=== PATIENT | female | born 1945 | race Caucasian/White ===

== ENCOUNTER → 2016-09-25 | Outpatient (CLI) | payer MEDICARE, BC ==
--- NOTE | 2016-09-25 13:09 | CT ---
EXAMINATION TYPE: CT brain wo con DATE OF EXAM: 09/25/2016 1:02 PM COMPARISON: 03/20/2010 [facility] Diana Villasenor INDICATION: Fall hydrocephalus DLP: 1153.70 mGycm, Automated exposure control for dose reduction was used. CONTRAST: None CT of the brain is performed utilizing 3 mm thick sections through the posterior fossa and 3 mm thick sections through the remaining calvarium. Study is performed within 24 hours of arrival to the hosp ital. No abnormal hyperdensity is present to suggest an acute intracranial hemorrhage. No mass lesion is evident. No acute infarcts are evident. Ventricles and sulci are markedly dilated for the patient age. This appearance however is stable fro 2009. There is mucosal thickening within the left maxillary sinus. There is opacification of the left sphen oid sinus with an air-fluid level present. Mucosal thickening is through ethmoid air cells. Right fro ntal sinus has mucosal thickening. Hyperostosis frontalis internus is present. IMPRESSIONS: 1. Stable hydrocephalus 2. Paranasal sinus disease
--- NOTE | 2016-09-25 13:11 | CT ---
EXAMINATION TYPE: CT hip RT wo con DATE OF EXAM: 09/25/2016 1:03 PM COMPARISON: NONE HISTORY: Fall, pain CT DLP: 520.84 mGycm Automated exposure control for dose reduction was used. FINDINGS: Femoral head articulates with the acetabulum. No acute fractures evident. Joint space is narrow alba tible with some degenerative change. Reconstructed images in the coronal and sagittal plane are reviewed on the computer. IMPRESSION: 1. NO ACUTE OSSEOUS ABNORMALITY RIGHT HIP
--- NOTE | 2016-09-25 13:29 | CT ---
EXAMINATION TYPE: CT chest wo con DATE OF EXAM: 09/25/2016 1:03 PM COMPARISON: 09/05/2010 HISTORY: Hydrocephalus fall CT DLP: 660.69 mGycm, Automated exposure control for dose reduction was used. CONTRAST: None TECHNIQUE: Axial images were obtained at 5 mm thick sections. Reconstructed images are reviewed on t he computer in the coronal plane. FINDINGS: Portion of the thyroid visualized is normal. There are patchy areas of pneumonitis present bilaterally. A new area appears to be in the left upper lobe. Series 18 image 11. An area within the upper portion right middle lobe has enlarged. Series 18 image 17. There is some enlargement of some densities within the superior segment left lower lobe. T his measures 0.4 cm which may be minimally larger than the prior. A 0.8 cm microlobular bordered dens ity in the superior segment right lower lobe has enlarged from 6 mm. Series 18 image 22 additional 0. 8 cm densities are within the left lower lobe. Series 18 images 22, 24. Stable densities or cavitatio n with air-fluid levels in the azygos esophageal recess are again evident. These may have enlarged ov er the interval with the largest measuring 1.2 x 1.3 cm. No enlarged mediastinal or hilar adenopathy is evident. The ascending aorta diameter at the level o f the main pulmonary artery is 3.8 cm. The main pulmonary artery diameter at the bifurcation is 2.8 cm. Coronary artery calcification is present. Limited CT sections are obtained through the upper abdomen. Calcification is within the right adrenal gland which can be related to prior hemorrhage. IMPRESSIONS: 1. Scattered shotty and some enlarged lymph nodes within the mediastinum. 2. Patchy scattered areas of pneumonitis within the bilateral lung texieira. 3. New area of pneumonitis is within the left upper lobe. Some of these old areas of pneumonitis may have minimally enlarged by a millimeter or two. Consider PET/CT to evaluate for possible neoplasm.
== END ==
LOC: RADCTMAIN 12:13
PROVIDERS: ATTEND Family Medicine
DX: G91.9 Hydrocephalus, unspecified (principal); J32.8 Other chronic sinusitis; S09.90XA Unspecified injury of head, initial encounter; W19.XXXA Unspecified fall, initial encounter; D86.0 Sarcoidosis of lung; M89.8X5 Other specified disorders of bone, thigh; R59.1 Generalized enlarged lymph nodes; J18.9 Pneumonia, unspecified organism
CPT/HCPCS: 70450; 71250

== ENCOUNTER → 2016-12-09 | Outpatient (CLI) | payer MEDICARE, BC ==
--- NOTE | 2016-12-09 09:31 | MR ---
MRI CERVICAL SPINE: CLINICAL HISTORY: Cervical myelopathy with difficulty walking TECHNIQUE: Multiplanar, multisequence imaging of the cervical spine is performed without IV contrast. COMPARISON: CT brain September 25, 2016 FINDINGS: Sagittal images of the cervical spine show the craniocervical junction to appear within nor mal limits. There is redemonstration of extra-axial CSF prominence in the posterior fossa with partia l visualization of severe hydrocephalus. This is unchanged back from 2011 studies. 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 The cervical and upper thoracic spinal cord is normal i n course, caliber, and signal. Vertebral alignment is anatomic. The vertebral body and intravertebr al disk heights are normal. Small posterior disc herniations are seen C4-C5 through C6-C7 levels on s agittal images effacing anterior thecal sac. There is generalized diminished T1 and T2 signal involvi ng the C5 vertebra noted. Axial images show the C2-C3 and C3-C4 vertebra to appear within normal limits. Axial images at C4-C5 level shows central disc protrusion effacing anterior thecal sac on axial image 33, bilateral neural foramina are patent. Axial images at C5-C6 level shows central disc protrusion effacing anterior thecal sac up to ventral surface of spinal cord on axial image 25, bilateral neural foramina are patent. Axial images at C6-C7 level show broad-based left paracentral disc protrusion effacing anterior theca l sac up to ventral surface of spinal cord with mild left-sided neural foraminal narrowing present. R ight-sided neural foramen is patent. Axial images at C7-T1 level are felt within normal limits. IMPRESSION: Some multilevel degenerative changes in the mid to lower cervical spine from C4 -C5 throu gh C6-C7 levels are seen as detailed above. Focal diffuse diminished signal involving C5 vertebra cou ld reflect myelofibrosis or mastocytosis among the possible etiologies. Clinical correlation advised.
== END | disposition home or self-care (01) ==
LOC: RADMRIMAIN 07:57
PROVIDERS: ATTEND Psychiatry & Neurology Neurology
DX: M47.12 Other spondylosis with myelopathy, cervical region (principal)
CPT/HCPCS: 72141

== ENCOUNTER → 2017-07-28 | Outpatient (CLI) | payer MEDICARE, BC ==
--- NOTE | 2017-07-28 23:23 | MR ---
EXAMINATION TYPE: MR brain wo con DATE OF EXAM: 07/28/2017 COMPARISON: Prior MRI brain March 21, 2010. Recent CT brain September 25, 2016. HISTORY: Hydrocephalus, worsening and worsening balance per order. TECHNIQUE: Multiplanar, multisequence imaging of the brain and brainstem is performed without IV cont rast. FINDINGS: Diffusion weighted images demonstrate no evidence of a recent infarct or other diffusion abnormality. There is no worrisome extra-axial fluid collection. There is marked ventricular dilatation or hydroce phalus redemonstrated not significantly changed from prior MRI. Enlarged toño cisterna magna is again seen. There are increased foci of T2 hyperintensity seen throughout the white matter bilaterally not ed. Midline structures redemonstrate thinning of genu and anterior body of corpus callosum and nonvisuali zation or absence of distal body and splenium. The craniocervical junction appears within normal lua its. Normal vascular flow voids are present. There is persistent mucosal thickening involving ethmoid , inferior maxillary, and bilateral frontal sinuses slightly improved from prior. Fluid is noted depe ndently in left sphenoid sinus stable. The globes are intact bilaterally. IMPRESSION: Stable severe hydrocephalus and toño-cisterna magna not significantly changed from prior MRI. Fairly moderate nonspecific white matter changes presumed on the basis of chronic small vessel i schemic change progressed from prior MRI. Paranasal sinus disease redemonstrated.
== END | disposition home or self-care (01) ==
LOC: RADMRIMAIN 13:15
PROVIDERS: ATTEND Psychiatry & Neurology Neurology
DX: G91.9 Hydrocephalus, unspecified (principal); R90.82 White matter disease, unspecified
CPT/HCPCS: 70551

== ENCOUNTER 2022-05-27 18:16 | Emergency (ER) | payer OTHER ==
[2022-05-27 18:38] VITALS: TEMP 97.7
--- NOTE | 2022-05-27 18:57 | ED ---
Altered Mental Status HPI - General Chief Complaint: Altered Mental Status Stated Complaint: AMS Time Seen by Provider: 05/27/22 18:22 Source: EMS Mode of arrival: EMS Limitations: altered mental status - History of Present Illness Initial Comments: This patient is a 76-year-old woman sent from the [facility] to have evaluation for altered mental status. The patient is very somnolent and not able to give much history. She does answer direct questions with short answers. Per the patient's who is at the bedside, [facility] because they were concerned that she was very somnolent. She reportedly had been given new medication to help her sleep. When I asked the patient, she is not having pain or dyspnea. She denies complaints. MD Complaint: altered mental status, decreased responsiveness -: hour(s) Severity: moderate Context: change in medication Associated Symptoms: denies other symptoms - Related Data Home Medications Medication Instructions Recorded Confirmed Montelukast [Singulair] 10 mg PO DAILY 12/11/14 05/22/16 Meloxicam [Mobic] 7.5 mg PO DAILY 05/22/16 05/22/16 Diclofenac Sodium [Voltaren Gel] 2 gram TOPICAL QID 05/28/16 05/28/16 Furosemide [Lasix] 1 tab PO DAILY 05/28/16 05/28/16 Ibuprofen [Advil] 100 mg PO DAILY PRN 05/28/16 05/28/16 Ipratropium [place] 0.06%Nasal 1 spray NASAL DAILY 05/28/16 05/28/16 [Atrovent Nasal 0.06%] [place] 1 drop BID 05/28/16 traMADol HCl [Ultram] 1 tab PO Q4H 05/28/16 05/28/16 Albuterol Nebulized [Ventolin 2.5 mg INHALATION RT-TID 04/29/22 04/29/22 Nebulized] Albuterol Sulfate [Ventolin HFA] 2 puff INHALATION RT-QID PRN 04/29/22 04/29/22 Ammonium Lactate Lotion 1 applic TOPICAL DAILY 04/29/22 04/29/22 [Lac-Hydrin 12% Lotion] Ascorbic Acid [Vitamin C] 500 mg PO DAILY 04/29/22 04/29/22 Cholecalciferol [Vitamin D3 (25 50 mcg PO DAILY 04/29/22 04/29/22 Mcg = 1000 Iu)] Cholestyramine (with Sugar) 4 gm PO DAILY 04/29/22 04/29/22 [Cholestyramine Powder] Donepezil HCl [Aricept] 10 mg PO DAILY 04/29/22 04/29/22 Ibuprofen [Motrin Ib] 400 mg PO Q6H PRN 04/29/22 04/29/22 Lactobacillus Rhamnosus GG 1 cap PO DAILY 04/29/22 04/29/22 [Culturelle] Loratadine [Claritin] 10 mg PO DAILY 04/29/22 04/29/22 Metoprolol Succinate [Metoprolol 25 mg PO DAILY 04/29/22 04/29/22 Succinate ER] Nystatin [Nystop] 1 applic TOPICAL BID 04/29/22 04/29/22 Omeprazole 20 mg PO DAILY 04/29/22 04/29/22 Zinc 50 mg PO DAILY 04/29/22 04/29/22 estradioL [Estring] 1 vag ring VAGINAL Q90D 04/29/22 04/29/22 Previous Rx's Medication Instructions Recorded Diclofenac Sodium Gel [Voltaren 2 gm TOPICAL QID #1 tube 05/28/16 Gel] traMADol HCl [Ultram] 50 mg PO Q4H PRN #150 tab 05/28/16 Cephalexin [Keflex] 250 mg PO Q6HR 5 Days #20 cap 05/03/22 QUEtiapine [SEROquel] 25 mg PO HS 30 Days #30 tab 05/03/22 levETIRAcetam [Keppra] 500 mg PO Q12HR 30 Days #60 tab 05/03/22 Cephalexin [Keflex] 500 mg PO Q6HR #12 cap 05/27/22 Allergies Allergy/AdvReac Type Severity Reaction Status Date / Time aspirin AdvReac Unknown Verified 05/09/22 09:04 Review of Systems ROS Statement: Those systems with pertinent positive or pertinent negative responses have been documented in the HPI. ROS Other: All systems not noted in ROS Statement are negative. Limitations: ROS unobtainable due to patients medical condition Constitutional: Denies: fever Respiratory: Denies: cough, dyspnea Cardiovascular: Denies: chest pain Gastrointestinal: Denies: abdominal pain Musculoskeletal: Denies: back pain Neurological: Denies: headache Past Medical History Past Medical History: Dementia, Memory Impairment, Osteoarthritis (OA) Additional Past Medical History / Comment(s): hydrocehpalis History of Any Multi-Drug Resistant Organisms: None Reported Past Surgical History: No Surgical Hx Reported Additional Past Surgical History / Comment(s): deviated septum, cervical biopsy, epidural injections Past Anesthesia/Blood Transfusion Reactions: No Reported Reaction Past Psychological History: No Psychological Hx Reported Smoking Status: Never smoker Past Alcohol Use History: None Reported Past Drug Use History: None Reported - Past Family History Mother Family Medical History: No Reported History General Exam Limitations: no limitations General appearance: obtunded, other (This patient is appearing stated age. She is somnolent but arousable.) Head exam: Present: atraumatic, normocephalic Eye exam: Present: normal appearance, EOMI. Absent: scleral icterus, conjunctival injection ENT exam: Present: mucous membranes dry Neck exam: Present: normal inspection, full ROM. Absent: tenderness, meningismus Respiratory exam: Present: wheezes (Trace wheeze). Absent: respiratory distress, rales, rhonchi, stridor, accessory muscle use Cardiovascular Exam: Present: regular rate, normal rhythm, normal heart sounds. Absent: systolic murmur, diastolic murmur, rubs, gallop GI/Abdominal exam: Present: soft. Absent: distended, tenderness, guarding, rebound, rigid, mass Extremities exam: Present: normal inspection, normal capillary refill. Absent: pedal edema, calf tenderness Neurological exam: Present: altered, other (Patient is too somnolent to comply with multistep instructions, does move all 4 extremities without apparent deficit. Answers simple yes and no questions.). Absent: motor sensory deficit Skin exam: Present: warm, dry, intact, normal color. Absent: rash Course Vital Signs 05/27/22 05/27/22 18:29 18:38 Temperature 97.7 F Pulse Rate 73 Respiratory 24 Rate Blood Pressure 109/58 O2 Sat by Pulse 96 Oximetry Medical Decision Making - Lab Data Result diagrams: 05/27/22 19:02 05/27/22 19:02 Lab Results 05/27/22 05/27/22 05/27/22 Range/Units 19:02 19:02 19:02 WBC 9.7 (3.8-10.6) k/uL RBC 4.87 (3.80-5.40) m/uL Hgb 14.9 (11.4-16.0) gm/dL Hct 44.0 (34.0-46.0) % MCV 90.4 (80.0-100.0) fL MCH 30.6 (25.0-35.0) pg MCHC 33.9 (31.0-37.0) g/dL RDW 12.8 (11.5-15.5) % Plt Count 178 (150-450) k/uL MPV 9.2 Neutrophils % 80 % Lymphocytes % 9 % Monocytes % 7 % Eosinophils % 3 % Basophils % 1 % Neutrophils # 7.8 H (1.3-7.7) k/uL Lymphocytes # 0.9 L (1.0-4.8) k/uL Monocytes # 0.6 (0-1.0) k/uL Eosinophils # 0.3 (0-0.7) k/uL Basophils # 0.1 (0-0.2) k/uL PT 11.8 (9.0-12.0) sec INR 1.1 (<1.2) APTT 23.8 (22.0-30.0) sec Sodium 134 L (137-145) mmol/L Potassium 4.1 (3.5-5.1) mmol/L Chloride 102 (98-107) mmol/L Carbon Dioxide 20 L (22-30) mmol/L Anion Gap 12 mmol/L BUN 21 H (7-17) mg/dL Creatinine 0.95 (0.52-1.04) mg/dL Est GFR (CKD-EPI)AfAm 67 (>60 ml/min/1.73 sqM) Est GFR (CKD-EPI)NonAf 58 (>60 ml/min/1.73 sqM) Glucose 145 H (74-99) mg/dL Calcium 9.3 (8.4-10.2) mg/dL Total Bilirubin 0.7 (0.2-1.3) mg/dL AST 25 (14-36) U/L ALT 18 (4-34) U/L Alkaline Phosphatase 90 (38-126) U/L Troponin I (0.000-0.034) ng/mL Total Protein 7.1 (6.3-8.2) g/dL Albumin 4.1 (3.5-5.0) g/dL Urine Color Urine Appearance (Clear) Urine pH (5.0-8.0) Ur Specific Mcdade (1.001-1.035) Urine Protein (Negative) Urine Glucose (UA) (Negative) Urine Ketones (Negative) Urine Blood (Negative) Urine Nitrite (Negative) Urine Bilirubin (Negative) Urine Urobilinogen (<2.0) mg/dL Ur Leukocyte Esterase (Negative) Urine RBC (0-5) /hpf Urine WBC (0-5) /hpf Urine WBC Clumps (None) /hpf Ur Squamous Epith Cells (0-4) /hpf Urine Bacteria (None) /hpf Hyaline Casts (0-2) /lpf Urine Mucus (None) /hpf Urine Opiates Screen (NotDetected) Ur Oxycodone Screen (NotDetected) Urine Methadone Screen (NotDetected) Ur Propoxyphene Screen (NotDetected) Ur Barbiturates Screen (NotDetected) U Tricyclic Antidepress (NotDetected) Ur Phencyclidine Scrn (NotDetected) Ur Amphetamines Screen (NotDetected) U Methamphetamines Scrn (NotDetected) U Benzodiazepines Scrn (NotDetected) Urine Cocaine Screen (NotDetected) U Marijuana (THC) Screen (NotDetected) 05/27/22 05/27/22 05/27/22 Range/Units 19:02 20:41 20:41 WBC (3.8-10.6) k/uL RBC (3.80-5.40) m/uL Hgb (11.4-16.0) gm/dL Hct (34.0-46.0) % MCV (80.0-100.0) fL MCH (25.0-35.0) pg MCHC (31.0-37.0) g/dL RDW (11.5-15.5) % Plt Count (150-450) k/uL MPV Neutrophils % % Lymphocytes % % Monocytes % % Eosinophils % % Basophils % % Neutrophils # (1.3-7.7) k/uL Lymphocytes # (1.0-4.8) k/uL Monocytes # (0-1.0) k/uL Eosinophils # (0-0.7) k/uL Basophils # (0-0.2) k/uL PT (9.0-12.0) sec INR (<1.2) APTT (22.0-30.0) sec Sodium (137-145) mmol/L Potassium (3.5-5.1) mmol/L Chloride (98-107) mmol/L Carbon Dioxide (22-30) mmol/L Anion Gap mmol/L BUN (7-17) mg/dL Creatinine (0.52-1.04) mg/dL Est GFR (CKD-EPI)AfAm (>60 ml/min/1.73 sqM) Est GFR (CKD-EPI)NonAf (>60 ml/min/1.73 sqM) Glucose (74-99) mg/dL Calcium (8.4-10.2) mg/dL Total Bilirubin (0.2-1.3) mg/dL AST (14-36) U/L ALT (4-34) U/L Alkaline Phosphatase (38-126) U/L Troponin I <0.012 (0.000-0.034) ng/mL Total Protein (6.3-8.2) g/dL Albumin (3.5-5.0) g/dL Urine Color Yellow Urine Appearance Cloudy H (Clear) Urine pH 5.5 (5.0-8.0) Ur Specific [place] 1.030 (1.001-1.035) Urine Protein 1+ H (Negative) Urine Glucose (UA) Negative (Negative) Urine Ketones Negative (Negative) Urine Blood Negative (Negative) Urine Nitrite Negative (Negative) Urine Bilirubin Negative (Negative) Urine Urobilinogen 4.0 (<2.0) mg/dL Ur Leukocyte Esterase Large H (Negative) Urine RBC 4 (0-5) /hpf Urine WBC 35 H (0-5) /hpf Urine WBC Clumps Many H (None) /hpf Ur Squamous Epith Cells <1 (0-4) /hpf Urine Bacteria Many H (None) /hpf Hyaline Casts 42 H (0-2) /lpf Urine Mucus Many H (None) /hpf Urine Opiates Screen Not Detected (NotDetected) Ur Oxycodone Screen Not Detected (NotDetected) Urine Methadone Screen Not Detected (NotDetected) Ur Propoxyphene Screen Not Detected (NotDetected) Ur Barbiturates Screen Not Detected (NotDetected) U Tricyclic Antidepress Detected H (NotDetected) Ur Phencyclidine Scrn Not Detected (NotDetected) Ur Amphetamines Screen Not Detected (NotDetected) U Methamphetamines Scrn Not Detected (NotDetected) U Benzodiazepines Scrn Not Detected (NotDetected) Urine Cocaine Screen Not Detected (NotDetected) U Marijuana (THC) Screen Not Detected (NotDetected) - EKG Data -: EKG Interpreted by [place] EKG shows normal: sinus rhythm, axis (Borderline left axis deviation), QRS complexes (Incomplete right bundle branch block. Low voltage QRS complex) Rate: normal (Rate 68 bpm) Disposition Clinical Impression: Urinary tract infection, Medication side effect Disposition: HOME SELF-CARE Condition: Good Instructions (If sedation given, give patient instructions): Urinary Tract Infection in Women (ED) Prescriptions: Cephalexin [Keflex] 500 mg PO Q6HR #12 cap Is patient prescribed a controlled substance at d/c from ED?: No Referrals: Magno Fishman MD [Primary Care Provider] - 1-2 days
[2022-05-27 19:29] LABS: Basophils # (A) 0.1 k/uL (0-0.2); Basophils % (A) 1 %; Eosinophils # (A) 0.3 k/uL (0-0.7); Eosinophils % (A) 3 %; HGB 14.9 gm/dL (11.4-16.0); Lymphocytes # (A) 0.9 k/uL (1.0-4.8); Lymphocytes % (A) 9 %; MCH 30.6 pg (25.0-35.0); MCHC 33.9 g/dL (31.0-37.0); MCV 90.4 fL (80.0-100.0); Mean Platelet Volume 9.2; Monocytes # (A) 0.6 k/uL (0-1.0); Monocytes % (A) 7 %; Neutrophils # (A) 7.8 k/uL (1.3-7.7); Neutrophils % (A) 80 %; Platelet Count 178 k/uL (150-450); RBC 4.87 m/uL (3.80-5.40); RDW 12.8 % (11.5-15.5); WBC 9.7 k/uL (3.8-10.6)
[2022-05-27 19:31] LABS: Albumin 4.1 g/dL (3.5-5.0); Calcium 9.3 mg/dL (8.4-10.2); Potassium 4.1 mmol/L (3.5-5.1); Total Bilirubin 0.7 mg/dL (0.2-1.3); Total Protein 7.1 g/dL (6.3-8.2)
--- NOTE | 2022-05-27 19:31 | XR ---
EXAMINATION TYPE: XR chest 1V portable DATE OF EXAM: 05/27/2022 COMPARISON: 05/01/2022 HISTORY: Altered mental status TECHNIQUE: FINDINGS: Heart is normal. Lungs are clear of infiltrate. No heart failure. There are no hilar masses . Bony thorax is intact. IMPRESSION: No active cardiopulmonary disease. No change.
[2022-05-27 19:38] LABS: INR 1.1 (<1.2); Partial Thromboplastin Time 23.8 sec (22.0-30.0); Prothrombin Time 11.8 sec (9.0-12.0)
[2022-05-27 21:00] LABS: Appearance,Urine Cloudy (Clear); Bacteria,Urine Many /hpf; Bilirubin,Urine Negative (Negative); Blood,Urine Negative (Negative); Color,Urine Yellow; Glucose,Urine (UA) Negative (Negative); Hyaline Casts,Urine 42 /lpf (0-2); Ketones,Urine Negative (Negative); Leukocyte Esterase,Urine Large (Negative); Mucus,Urine Many /hpf; Nitrite,Urine Negative (Negative); PH, Urine 5.5 (5.0-8.0); Protein,Urine 1+ (Negative); RBC,Urine 4 /hpf (0-5); Squamous Epithelial Cell,Urine <1 /hpf (0-4); WBC,Urine 35 /hpf (0-5)
[2022-05-27 21:06] LABS: Amphetamine Screen,Urine Not Detected (NotDetected); Barbiturate Screen,Urine Not Detected (NotDetected); Benzodiazepines Screen,Urine Not Detected (NotDetected); Cocaine Screen,Urine Not Detected (NotDetected); Methadone Screen, Urine Not Detected (NotDetected); Opiate Screen,Urine Not Detected (NotDetected); Oxycodone Screen, Urine Not Detected (NotDetected); Phencyclidine Screen,Urine Not Detected (NotDetected); Tricyclic Antidepressant,Urine Detected (NotDetected); Urn Cannabinoid Scrn Not Detected (NotDetected)
[2022-05-27 23:14] VITALS: RESP 16
[2022-05-27 23:18] VITALS: BP 99/69; PULSE 88
== END 2022-05-27 23:17 | disposition home or self-care (01) ==
LOC: EC 18:16
DX: N39.0 Urinary tract infection, site not specified (principal); T50.905A Adverse effect of unspecified drugs, medicaments and biological substances, initial encounter; Z88.6 Allergy status to analgesic agent
CPT/HCPCS: 36415; 80053; 84484; 85025; 85610; 85730; 81001; 80306; 87086; 71045; 96365; 99285; J0696; 87077; 87186

== ENCOUNTER → 2022-05-30 | Outpatient (CLI) | payer OTHER ==
--- NOTE | 2022-05-30 11:59 | BD ---
EXAMINATION TYPE: Axial Bone Density DATE OF EXAM: 05/30/2022 COMPARISON: NONE CLINICAL HISTORY: 76 years year old Female. ICD-10 CODE: Z13.820 Encounter for screening for osteopo rosis Height: 66 Weight: 225 FRAX RISK QUESTIONS: Alcohol (3 or more units per day): no Family History (Parent hip fracture): no Glucocorticoids (More than 3mos): no (Ex: prednisone, prednisolone, methylprednisolone, dexamethasone, and hydrocortisone). History of Fracture in Adulthood: no Secondary Osteoporosis: 1. Type 1 Diabetes: no 2. Hyperthyroidism: no 3. Menopause before 45: no 4. Malnutrition: no 5. Chronic liver disease: no Rheumatoid Arthritis: no Current Tobacco Use: no RISK FACTORS HISTORY OF: Surgery to Spine/Hip(right/left)/Wrist (right/left): no Family History of Osteoporosis: no Active: no Diet low in dairy products/other sources of calcium: no Postmenopausal woman: yes Lost more than 2 inches in height since high school: no MEDICATIONS: Additional History: EXAM MEASUREMENTS: Bone mineral densitometry was performed using the [employer] System. Bone mineral density about the L Wrist (g/cm2): 0.678 T Score values are as follows: -----Dist. R+U: -0.2 -----Prox. R+U: -0.1 -----Radius total: -0.1 Bone mineral density : baseline IMPRESSION: Normal (Values between +1 and -1 indicate normal bone mass). Consider repeating this study in 5 year s or sooner if there is some new clinical indication. NOTE: T-SCORE=SD OF THE YOUNG ADULT MEAN.
== END | disposition home or self-care (01) ==
LOC: RADBDWWP 09:42
PROVIDERS: ATTEND Family Medicine
DX: Z13.820 Encounter for screening for osteoporosis (principal)
CPT/HCPCS: 77081

== ENCOUNTER → 2023-07-03 | Outpatient (CLI) | payer OTHER ==
[2023-07-03 11:13] LABS: African American GFR (CKD) >90 (>60 ml/min/1.73 sqM); Blood Urea Nitrogen 13 mg/dL (7-17); Non-African American GFR(CKD) 86 (>60 ml/min/1.73 sqM)
--- NOTE | 2023-07-03 13:12 | CT ---
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 Contrast CTA of the thoracic and abdominal aorta was performed from the lung apex through the base of the pelvis. 3-D reconstruction imaging obtained at a separate workstation. CT Chest: THORACIC AORTA: There is no evidence for aneurysm. No dissection or mediastinal hematoma. Mild ath eromatous changes are seen. LUNGS: The lungs are clear and free of infiltrate or atelectasis. There is scattered calcified and no ncalcified pulmonary nodules unchanged from 2017 compatible with remote granulomatous process. No ple ural effusion or CT evidence of interstitial lung disease. MEDIASTINUM: The heart is not enlarged. No evidence for mediastinal mass or adenopathy. HILAR STRUCTURES: No evidence for mass. No hilar adenopathy is appreciated. Calcified hilar lymph no max are noted. OTHER: No significant abnormality. CONTRAST CT ABDOMEN AND PELVIS ABDOMINAL AORTA: No evidence for abdominal aortic aneurysm. No dissection. Iliac vessels are symmet carrol and patent. 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 LIVER/GB-renal cystic changes noted. PANCREAS- No significant abnormality is seen. SPLEEN- No significant abnormality is seen. ADRENALS- No significant abnormality is seen. KIDNEYS/BLADDER- No significant abnormality is seen. BOWEL- No Significant abnormality GENITAL ORGANS: No mass of the uterus or ovaries. Has read as noted. LYMPH NODES- No greater than 1cm abdominal or pelvic lymph nodes are appreciated. OSSEOUS STRUCTURES- No significant abnormality is seen. OTHER- No significant abnormality is seen. IMPRESSION- 1. No evidence for thoracic or aortic aneurysm. 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
== END | disposition home or self-care (01) ==
LOC: RADCTMAIN 10:07
PROVIDERS: ATTEND Emergency Medicine
DX: I72.2 Aneurysm of renal artery (principal); I71.20 Thoracic aortic aneurysm, without rupture, unspecified
CPT/HCPCS: 82565; 84520; 71275; 36415; 74174; Q9967

== ENCOUNTER 2023-09-09 02:38 | Emergency (ER) | payer OTHER ==
[2023-09-09] MEDS ORDERED: ONDANSETRON 4 MG/2 ML VIAL IVP STA (02:50)
[2023-09-09 02:57] VITALS: RESP 22; TEMP 99
[2023-09-09 03:22] LABS: Basophils % (A) 1 %; Eosinophils % (A) 0 %; HCT 44.5 % (34.0-46.0); HGB 15.1 gm/dL (11.4-16.0); Lymphocytes # (A) 0.9 k/uL (1.0-4.8); Lymphocytes % (A) 11 %; MCH 31.4 pg (25.0-35.0); MCHC 33.9 g/dL (31.0-37.0); MCV 92.6 fL (80.0-100.0); Monocytes # (A) 0.7 k/uL (0-1.0); Monocytes % (A) 9 %; Neutrophils # (A) 6.2 k/uL (1.3-7.7); Neutrophils % (A) 77 %; Platelet Count 153 k/uL (150-450); RBC 4.81 m/uL (3.80-5.40); RDW 13.2 % (11.5-15.5); WBC 8.1 k/uL (3.8-10.6)
--- NOTE | 2023-09-09 03:32 | XR ---
EXAM: XR Chest, 2 Views CLINICAL HISTORY: ITS.REASON XR Reason: difficulty breathing TECHNIQUE: Frontal and lateral views of the chest. COMPARISON: CXR 05/27/2022. FINDINGS: Lungs: Unremarkable. No consolidation. Pleural space: Unremarkable. No pneumothorax. Heart: Mild cardiomegaly. Mediastinum: Unremarkable. Normal mediastinal contour. Bones/joints: Unremarkable. No acute fracture. IMPRESSION: No acute findings in the chest.
[2023-09-09 03:33] LABS: ALT 19 U/L (4-34); AST 27 U/L (14-36); African American GFR (CKD) >90 (>60 ml/min/1.73 sqM); Albumin 4.1 g/dL (3.5-5.0); Alkaline Phosphatase 85 U/L (38-126); Anion Gap 11 mmol/L; Blood Urea Nitrogen 16 mg/dL (7-17); Calcium 9.3 mg/dL (8.4-10.2); Carbon Dioxide 25 mmol/L (22-30); Chloride 102 mmol/L (98-107); Glucose 138 mg/dL (74-99); Non-African American GFR(CKD) 82 (>60 ml/min/1.73 sqM); Potassium 4.4 mmol/L (3.5-5.1); Sodium 138 mmol/L (137-145); Total Bilirubin 0.8 mg/dL (0.2-1.3); Total Protein 7.4 g/dL (6.3-8.2)
[2023-09-09 03:40] LABS: INR 1.1 (<1.2); Partial Thromboplastin Time 25.1 sec (22.0-30.0); Prothrombin Time 11.6 sec (10.0-12.5)
[2023-09-09 03:42] LABS: NT-Pro-B-Type Natriuretic Pept 607 pg/mL
--- NOTE | 2023-09-09 04:39 | ED ---
General Adult HPI - General Chief complaint: Shortness of Breath Stated complaint: wheezing Time Seen by Provider: 09/09/23 02:45 Source: EMS Mode of arrival: EMS Limitations: no limitations - History of Present Illness Initial comments: This patient is 77-year-old woman, coming from shelter to have evaluation for shortness of breath. She states it has gotten worse over the day. Not sure if she has had fever. She is having mild cough, no sputum. No chest pain. -: days(s) Severity scale (1-10): 0 Consistency: constant Improves with: none Worsens with: none Associated Symptoms: cough, malaise Treatments Prior to Arrival: none - Related Data Home Medications Medication Instructions Recorded Confirmed Montelukast [Singulair] 10 mg PO DAILY 12/11/14 05/22/16 Meloxicam [Mobic] 7.5 mg PO DAILY 05/22/16 05/22/16 Diclofenac Sodium [Voltaren Gel] 2 gram TOPICAL QID 05/28/16 05/28/16 Furosemide [Lasix] 1 tab PO DAILY 05/28/16 05/28/16 Ibuprofen [Advil] 100 mg PO DAILY PRN 05/28/16 05/28/16 Ipratropium [place] 0.06%Nasal 1 spray NASAL DAILY 05/28/16 05/28/16 [Atrovent Nasal 0.06%] [place] 1 drop BID 05/28/16 traMADol HCl [Ultram] 1 tab PO Q4H 05/28/16 05/28/16 Albuterol Nebulized [Ventolin 2.5 mg INHALATION RT-TID 04/29/22 04/29/22 Nebulized] Albuterol Sulfate [Ventolin HFA] 2 puff INHALATION RT-QID PRN 04/29/22 04/29/22 Ammonium Lactate Lotion 1 applic TOPICAL DAILY 04/29/22 04/29/22 [Lac-Hydrin 12% Lotion] Ascorbic Acid [Vitamin C] 500 mg PO DAILY 04/29/22 04/29/22 Cholecalciferol [Vitamin D3 (25 50 mcg PO DAILY 04/29/22 04/29/22 Mcg = 1000 Iu)] Cholestyramine (with Sugar) 4 gm PO DAILY 04/29/22 04/29/22 [Cholestyramine Powder] Donepezil HCl [Aricept] 10 mg PO DAILY 04/29/22 04/29/22 Ibuprofen [Motrin Ib] 400 mg PO Q6H PRN 04/29/22 04/29/22 Lactobacillus Rhamnosus GG 1 cap PO DAILY 04/29/22 04/29/22 [Culturelle] Loratadine [Claritin] 10 mg PO DAILY 04/29/22 04/29/22 Metoprolol Succinate [Metoprolol 25 mg PO DAILY 04/29/22 04/29/22 Succinate ER] Nystatin [Nystop] 1 applic TOPICAL BID 04/29/22 04/29/22 Omeprazole 20 mg PO DAILY 04/29/22 04/29/22 Zinc 50 mg PO DAILY 04/29/22 04/29/22 estradioL [Estring] 1 vag ring VAGINAL Q90D 04/29/22 04/29/22 Previous Rx's Medication Instructions Recorded Diclofenac Sodium Gel [Voltaren 2 gm TOPICAL QID #1 tube 05/28/16 Gel] traMADol HCl [Ultram] 50 mg PO Q4H PRN #150 tab 05/28/16 Cephalexin [Keflex] 250 mg PO Q6HR 5 Days #20 cap 05/03/22 QUEtiapine [SEROquel] 25 mg PO HS 30 Days #30 tab 05/03/22 levETIRAcetam [Keppra] 500 mg PO Q12HR 30 Days #60 tab 05/03/22 Cephalexin [Keflex] 500 mg PO Q6HR #12 cap 05/27/22 Allergies Allergy/AdvReac Type Severity Reaction Status Date / Time aspirin AdvReac Unknown Verified 09/09/23 02:48 Review of Systems ROS Statement: Those systems with pertinent positive or pertinent negative responses have been documented in the HPI. ROS Other: All systems not noted in ROS Statement are negative. Constitutional: Denies: fever, chills Respiratory: Reports: cough, dyspnea. Denies: hemoptysis Cardiovascular: Denies: chest pain, palpitations, orthopnea, edema Gastrointestinal: Denies: abdominal pain, vomiting, diarrhea Genitourinary: Denies: dysuria, hematuria Musculoskeletal: Reports: myalgia. 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 History of Any Multi-Drug Resistant Organisms: None Reported Past Surgical History: No Surgical Hx Reported Additional Past Surgical History / Comment(s): deviated septum, cervical biopsy, epidural injections Past Anesthesia/Blood Transfusion Reactions: No Reported Reaction Past Psychological History: No Psychological Hx Reported Smoking Status: Never smoker Past Alcohol Use History: None Reported Past Drug Use History: None Reported - Past Family History Mother Family Medical History: No Reported History General Exam General appearance: alert, in no apparent distress Head exam: Present: atraumatic, normocephalic Eye exam: Present: normal appearance. Absent: scleral icterus, conjunctival injection ENT exam: Present: normal oropharynx Neck exam: Present: normal inspection Respiratory exam: Present: normal lung sounds bilaterally. Absent: respiratory distress, wheezes, rales, rhonchi, stridor, accessory muscle use Cardiovascular Exam: Present: regular rate, normal rhythm, normal heart sounds. Absent: systolic murmur, diastolic murmur, rubs, gallop GI/Abdominal exam: Present: soft. Absent: distended, tenderness, guarding, r ebound, rigid, mass Extremities exam: Present: normal inspection, normal capillary refill. Absent: pedal edema, calf tenderness Back exam: Present: normal inspection Neurological exam: Present: alert Skin exam: Present: warm, dry, intact, normal color. Absent: rash Course Vital Signs 09/09/23 09/09/23 09/09/23 02:39 04:27 05:44 Temperature 99.0 F Pulse Rate 100 85 85 Respiratory 22 22 22 Rate Blood Pressure 112/74 121/72 108/72 O2 Sat by Pulse 90 L 90 L 93 L Oximetry EKG Findings - EKG Results: EKG: interpreted by ERMD, sinus rhythm (90 bpm) - Blocks, [place], Hypertrophy, ST Abn: AV and intraventricular conduction: right bundle branch block (fixed/intermittent, complete/incomplete) (Complete) QRS axis and voltage: left axis deviation (-30 to -90) Medical Decision Making - Medical Decision Making The patient had chest x-ray which I interpreted as negative for acute infiltrate, pneumothorax, congestive heart failure Was pt. sent in by a medical professional or institution (, PA, [facility]ER, urgent care, hospital, or shelter...) When possible be specific @ -[No] Did you speak to anyone other than the patient for history (EMS, parent, family, police, friend...)? What history was obtained from this source @ -[No] Did you review nursing and triage notes (agree or disagree)? Why? @ -[I reviewed and agree with nursing and triage notes] Were old charts reviewed (outside hosp., previous admission, EMS record, old EKG, old radiological studies, urgent care reports/EKG's, shelter records)? Report findings @ -[No old charts were reviewed] Differential Diagnosis (chest pain, altered mental status, abdominal pain women, abdominal pain men, vaginal bleeding, weakness, fever, dyspnea, syncope, headache, dizziness, GI bleed, back pain, seizure, CVA, palpatations, mental health, musculoskeletal)? @ -[Differential Dyspnea: Coronary syndrome, arrhythmia, tamponade, asthma, COPD, pulmonary embolism, pneumonia, pneumothorax, pulmonary effusion, anaphylaxis, diabetic ketoacidosis, flailed chest, pulmonary contusion, diaphragmatic rupture, anemia, neuromuscular, this is not meant to be an all-inclusive list. EKG interpreted by me (3pts min.). @ -[I interpreted As above] X-rays interpreted by me (1pt min.). @ -[I interpreted as above CT interpreted by me (1pt min.). @ -[None done] U/S interpreted by me (1pt. min.). @ -[None done] What testing was considered but not performed or refused? (CT, X-rays, U/S, labs)? Why? @ -[None] What meds were considered but not given or refused? Why? @ -[None] Did you discuss the management of the patient with other professionals (professionals i.e. , PA, [employer]ER, lab, RT, psych nurse, social insurance analyst, lip cutter, teacher, community service officer coordinator, case mgr)? Give summary @ -[No] Was smoking cessation discussed for >3mins.? @ -[No] Was critical care preformed (if so, how long)? @ -[No] Were there social determinants of health that impacted care today? How? (Homelessness, low income, unemployed, alcoholism, drug addiction, transportat ion, low edu. Level, literacy, decrease access to med. care, fci, rehab)? @ -[No] Was there de-escalation of care discussed even if they declined (Discuss DNR or withdrawal of care, Hospice)? DNR status @ -[No] What co-morbidities impacted this encounter? (DM, HTN, Smoking, COPD, CAD, Cancer, CVA, ARF, Chemo, Hep., AIDS, mental health diagnosis, sleep apnea, morbid obesity)? @ -[None] Was patient admitted / discharged? Hospital course, mention meds given and route, prescriptions, significant lab abnormalities, going to OR and other pertinent info. @ -[Patient is 77-year-old woman coming for evaluation of dyspnea. The patient is found to have influenza A infection. The remainder of the workup largely unremarkable. Clinically she is stable for discharge back to assisted facility, no respiratory distress Undiagnosed new problem with uncertain prognosis? @ -[No] Drug Therapy requiring intensive monitoring for toxicity (Heparin, Nitro, Insulin, Cardizem)? @ -[No] Were any procedures done? @ -[No] Diagnosis/symptom? @ -[Acute dyspnea. Influenza A Acute, or Chronic, or Acute on Chronic? @ -[Acute Uncomplicated (without systemic symptoms) or Complicated (systemic symptoms)? @ -[Uncomplicated Side effects of treatment? @ -[No] Exacerbation, Progression, or Severe Exacerbation? @ -[No] Poses a threat to life or bodily function? How? (Chest pain, [place], [place], pneumonia, PE, COPD, DKA, ARF, appy, cholecystitis, CVA, Diverticulitis, Homicidal, Suicidal, threat to staff... and all critical care pts) @ -[No] - Lab Data Result diagrams: 09/09/23 02:59 09/09/23 02:59 Lab Results 09/09/23 09/09/23 09/09/23 Range/Units 02:54 02:59 02:59 WBC 8.1 (3.8-10.6) k/uL RBC 4.81 (3.80-5.40) m/uL Hgb 15.1 (11.4-16.0) gm/dL Hct 44.5 (34.0-46.0) % MCV 92.6 (80.0-100.0) fL MCH 31.4 (25.0-35.0) pg MCHC 33.9 (31.0-37.0) g/dL RDW 13.2 (11.5-15.5) % Plt Count 153 (150-450) k/uL MPV 9.0 Neutrophils % 77 % Lymphocytes % 11 % Monocytes % 9 % Eosinophils % 0 % Basophils % 1 % Neutrophils # 6.2 (1.3-7.7) k/uL Lymphocytes # 0.9 L (1.0-4.8) k/uL Monocytes # 0.7 (0-1.0) k/uL Eosinophils # 0.0 (0-0.7) k/uL Basophils # 0.0 (0-0.2) k/uL PT 11.6 (10.0-12.5) sec INR 1.1 (<1.2) APTT 25.1 (22.0-30.0) sec D-Dimer 0.52 (<0.60) mg/L FEU Sodium (137-145) mmol/L Potassium (3.5-5.1) mmol/L Chloride (98-107) mmol/L Carbon Dioxide (22-30) mmol/L Anion Gap mmol/L BUN (7-17) mg/dL Creatinine (0.52-1.04) mg/dL Est GFR (CKD-EPI)AfAm (>60 ml/min/1.73 sqM) Est GFR (CKD-EPI)NonAf (>60 ml/min/1.73 sqM) Glucose (74-99) mg/dL Lactic Ac Sepsis Rflx Plasma Lactic Acid Jules (0.7-2.0) mmol/L Calcium (8.4-10.2) mg/dL Total Bilirubin (0.2-1.3) mg/dL AST (14-36) U/L ALT (4-34) U/L Alkaline Phosphatase (38-126) U/L Troponin I (0.000-0.034) ng/mL NT-Pro-B Natriuret Pep pg/mL Total Protein (6.3-8.2) g/dL Albumin (3.5-5.0) g/dL Urine Color Urine Appearance (Clear) Urine pH (5.0-8.0) Ur Specific [place] (1.001-1.035) Urine Protein (Negative) Urine Glucose (UA) (Negative) Urine Ketones (Negative) Urine Blood (Negative) Urine Nitrite (Negative) Urine Bilirubin (Negative) Urine Urobilinogen (<2.0) mg/dL Ur Leukocyte Esterase (Negative) Urine RBC (0-5) /hpf Urine WBC (0-5) /hpf Ur Squamous Epith Cells (0-4) /hpf Urine Bacteria (None) /hpf Urine Mucus (None) /hpf Urine Yeast (Budding) (None) /hpf Influenza Type A (PCR) Detected A (Not Detectd) Influenza Type B (PCR) Not Detected (Not Detectd) RSV (PCR) Not Detected (Not Detectd) SARS-CoV-2 (PCR) Not Detected (Not Detectd) 09/09/23 09/09/23 09/09/23 Range/Units 02:59 02:59 02:59 WBC (3.8-10.6) k/uL RBC (3.80-5.40) m/uL Hgb (11.4-16.0) gm/dL Hct (34.0-46.0) % MCV (80.0-100.0) fL MCH (25.0-35.0) pg MCHC (31.0-37.0) g/dL RDW (11.5-15.5) % Plt Count (150-450) k/uL MPV Neutrophils % % Lymphocytes % % Monocytes % % Eosinophils % % Basophils % % Neutrophils # (1.3-7.7) k/uL Lymphocytes # (1.0-4.8) k/uL Monocytes # (0-1.0) k/uL Eosinophils # (0-0.7) k/uL Basophils # (0-0.2) k/uL PT (10.0-12.5) sec INR (<1.2) APTT (22.0-30.0) sec D-Dimer (<0.60) mg/L FEU Sodium 138 (137-145) mmol/L Potassium 4.4 (3.5-5.1) mmol/L Chloride 102 (98-107) mmol/L Carbon Dioxide 25 (22-30) mmol/L Anion Gap 11 mmol/L BUN 16 (7-17) mg/dL Creatinine 0.71 (0.52-1.04) mg/dL Est GFR (CKD-EPI)AfAm >90 (>60 ml/min/1.73 sqM) Est GFR (CKD-EPI)NonAf 82 (>60 ml/min/1.73 sqM) Glucose 138 H (74-99) mg/dL Lactic Ac Sepsis Rflx Plasma Lactic Acid Jules 2.3 H* (0.7-2.0) mmol/L Calcium 9.3 (8.4-10.2) mg/dL Total Bilirubin 0.8 (0.2-1.3) mg/dL AST 27 (14-36) U/L ALT 19 (4-34) U/L Alkaline Phosphatase 85 (38-126) U/L Troponin I (0.000-0.034) ng/mL NT-Pro-B Natriuret Pep 607 pg/mL Total Protein 7.4 (6.3-8.2) g/dL Albumin 4.1 (3.5-5.0) g/dL Urine Color Yellow Urine Appearance Clear (Clear) Urine pH 5.0 (5.0-8.0) Ur Specific [place] 1.025 (1.001-1.035) Urine Protein Negative (Negative) Urine Glucose (UA) Negative (Negative) Urine Ketones Negative (Negative) Urine Blood Moderate H (Negative) Urine Nitrite Positive H (Negative) Urine Bilirubin Negative (Negative) Urine Urobilinogen <2.0 (<2.0) mg/dL Ur Leukocyte Esterase Negative (Negative) Urine RBC 3 (0-5) /hpf Urine WBC 1 (0-5) /hpf Ur Squamous Epith Cells 1 (0-4) /hpf Urine Bacteria Moderate H (None) /hpf Urine Mucus Occasional H (None) /hpf Urine Yeast (Budding) Occasional H (None) /hpf Influenza Type A (PCR) (Not Detectd) Influenza Type B (PCR) (Not Detectd) RSV (PCR) (Not Detectd) SARS-CoV-2 (PCR) (Not Detectd) 09/09/23 09/09/23 Range/Units 02:59 04:21 WBC (3.8-10.6) k/uL RBC (3.80-5.40) m/uL Hgb (11.4-16.0) gm/dL Hct (34.0-46.0) % MCV (80.0-100.0) fL MCH (25.0-35.0) pg MCHC (31.0-37.0) g/dL RDW (11.5-15.5) % Plt Count (150-450) k/uL MPV Neutrophils % % Lymphocytes % % Monocytes % % Eosinophils % % Basophils % % Neutrophils # (1.3-7.7) k/uL Lymphocytes # (1.0-4.8) k/uL Monocytes # (0-1.0) k/uL Eosinophils # (0-0.7) k/uL Basophils # (0-0.2) k/uL PT (10.0-12.5) sec INR (<1.2) APTT (22.0-30.0) sec D-Dimer (<0.60) mg/L FEU Sodium (137-145) mmol/L Potassium (3.5-5.1) mmol/L Chloride (98-107) mmol/L Carbon Dioxide (22-30) mmol/L Anion Gap mmol/L BUN (7-17) mg/dL Creatinine (0.52-1.04) mg/dL Est GFR (CKD-EPI)AfAm (>60 ml/min/1.73 sqM) Est GFR (CKD-EPI)NonAf (>60 ml/min/1.73 sqM) Glucose (74-99) mg/dL Lactic Ac Sepsis Rflx Y Plasma Lactic Acid Jules (0.7-2.0) mmol/L Calcium (8.4-10.2) mg/dL Total Bilirubin (0.2-1.3) mg/dL AST (14-36) U/L ALT (4-34) U/L Alkaline Phosphatase (38-126) U/L Troponin I <0.012 (0.000-0.034) ng/mL NT-Pro-B Natriuret Pep pg/mL Total Protein (6.3-8.2) g/dL Albumin (3.5-5.0) g/dL Urine Color Urine Appearance (Clear) Urine pH (5.0-8.0) Ur Specific [place] (1.001-1.035) Urine Protein (Negative) Urine Glucose (UA) (Negative) Urine Ketones (Negative) Urine Blood (Negative) Urine Nitrite (Negative) Urine Bilirubin (Negative) Urine Urobilinogen (<2.0) mg/dL Ur Leukocyte Esterase (Negative) Urine RBC (0-5) /hpf Urine WBC (0-5) /hpf Ur Squamous Epith Cells (0-4) /hpf Urine Bacteria (None) /hpf Urine Mucus (None) /hpf Urine Yeast (Budding) (None) /hpf Influenza Type A (PCR) (Not Detectd) Influenza Type B (PCR) (Not Detectd) RSV (PCR) (Not Detectd) SARS-CoV-2 (PCR) (Not Detectd) - EKG Data -: EKG Interpreted by Me Disposition Clinical Impression: Influenza A Disposition: HOME SELF-CARE Condition: Fair Instructions (If sedation given, give patient instructions): Influenza (ED) Is patient prescribed a controlled substance at d/c from ED?: No Referrals: Dominguez Centeno DO [Primary Care Provider] - 1-2 days
[2023-09-09] MEDS ORDERED: SODIUM CHLORIDE 0.9% 500 ML 500 ML IV STA (04:42)
[2023-09-09 05:15] LABS: Appearance,Urine Clear (Clear); Bacteria,Urine Moderate /hpf; Bilirubin,Urine Negative (Negative); Blood,Urine Moderate (Negative); Budding Yeast,Urine Occasional /hpf; Color,Urine Yellow; Glucose,Urine (UA) Negative (Negative); Ketones,Urine Negative (Negative); Leukocyte Esterase,Urine Negative (Negative); Mucus,Urine Occasional /hpf; Nitrite,Urine Positive (Negative); Protein,Urine Negative (Negative); RBC,Urine 3 /hpf (0-5); Specific Gravity,Urine 1.025 (1.001-1.035); Squamous Epithelial Cell,Urine 1 /hpf (0-4); Urobilinogen,Urine <2.0 mg/dL (<2.0); WBC,Urine 1 /hpf (0-5)
[2023-09-09 05:54] VITALS: BP 108/72; PULSE 85
== END 2023-09-09 08:30 | disposition home or self-care (01) ==
LOC: EC 02:38
DX: J10.1 Influenza due to other identified influenza virus with other respiratory manifestations (principal); I45.10 Unspecified right bundle-branch block; M19.90 Unspecified osteoarthritis, unspecified site; Z79.1 Long term (current) use of non-steroidal anti-inflammatories (NSAID); Z88.6 Allergy status to analgesic agent; Z20.822 Contact with and (suspected) exposure to COVID-19
CPT/HCPCS: 36415; 93005; 85379; 83880; 80053; 83605; 84484; 85025; 85610; 85730; 81001; 87040; 87636; 71046; 99285; 96374; 96361; J2405

== ENCOUNTER → 2024-06-03 | Outpatient (CLI) | payer OTHER ==
--- NOTE | 2024-06-14 21:38 | BD ---
EXAMINATION TYPE: Axial Bone Density DATE OF EXAM: 06/03/2024 CLINICAL HISTORY: 78 years old Female. ICD-10 CODE: Z13.820 ENCOUNTER FOR SCREENING FOR OSTEOPOROSIS Height: 64.79 tech did not stand pt Weight: 201.3 taken off [employer] information FRAX RISK QUESTIONS: Alcohol (3 or more units per day): no Family History (Parent hip fracture): no Glucocorticoids (More than 3mos): no (Ex: prednisone, prednisolone, methylprednisolone, dexamethasone, and hydrocortisone). History of Fracture in Adulthood: no Secondary Osteoporosis: 1. Type 1 Diabetes: no 2. Hyperthyroidism: no 3. Menopause before 45: ? 4. Malnutrition: no 5. Chronic liver disease: no Rheumatoid Arthritis: no Current Tobacco Use: no RISK FACTORS HISTORY OF: Hip Fracture (Right/Left): no Spine Fracture: no History of Wrist Fracture: no Surgery to Spine/Hip(right/left)/Wrist (right/left): no MEDICATIONS: Thyroid Medications: no Osteoporosis Medications: no Best history possible, [employer] patient and tried to find information off a papers regarding her [facility] care. EXAM MEASUREMENTS: Bone mineral densitometry was performed using the [employer] System. Bone mineral density as measured about the Lumbar spine is: ----- L1-L4(G/cm2): 1.250 T Score Values are as follows: ----- L1: -0.5 ----- L2: -0.4 ----- L3: -0.1 ----- L4: 2.8 ----- L1-L4: 0.6 Z Score Values are as follows: ----- L1: 0.5 ----- L2: 0.6 ----- L3: 1.0 ----- L4: 3.9 ----- L1-L4: 1.6 Baseline Study Bone mineral density about the R hip (g/cm2): 0.774 Bone mineral density about the L hip (g/cm2): 0.822 T Score values are as follows: -----R Neck: -1.1 -----L Neck: -1.4 -----R Total: -1.9 -----L Total: -1.5 Z Score values are as follows: -----R Neck: 0.5 -----L Neck: 0.2 -----R Total: -0.4 -----L Total: -0.1 Bone mineral density has: decreased 21.1 % since study of: 02/06/2012 FRAX%s: The graph provided illustrates a 12.4% chance for a major osteoporotic fx and a 2.7% chance f or the hips probability for fx in 10 years time. IMPRESSION: Osteopenia (T Score between -2.5 and -1). There is slightly increased risk of fracture and the patient may be considered for treatment. Re-Screen 2-5 years. NOTE: T-SCORE=SD OF THE YOUNG ADULT MEAN. [facility], , 06/14/2024 9:36 PM
== END | disposition home or self-care (01) ==
LOC: RADBDWWP 11:35
PROVIDERS: ATTEND Emergency Medicine
DX: Z13.820 Encounter for screening for osteoporosis
CPT/HCPCS: 77080

== ENCOUNTER 2024-06-22 10:58 | Emergency (ER) | payer OTHER ==
--- NOTE | 2024-06-22 12:34 | ED ---
General Adult HPI - General Chief complaint: Nausea/Vomiting/Diarrhea Stated complaint: Vomiting Time Seen by Provider: 06/22/24 12:16 Source: patient, RN notes reviewed, old records reviewed Mode of arrival: wheelchair Limitations: no limitations - History of Present Illness Initial comments: 78-year-old female presents for evaluation of vomiting. Patient was apparently here for outpatient CT ordered by her neurologist with history of advanced demen tia. Patient had vomited and the informatics physician was instructed to bring the patient to the emergency department. Patient is unable to contribute to the history. She is noted to be leaning to the left which is apparently a chronic issue. - Related Data Home Medications Medication Instructions Recorded Confirmed Montelukast [Singulair] 10 mg PO DAILY 12/11/14 05/22/16 Meloxicam [Mobic] 7.5 mg PO DAILY 05/22/16 05/22/16 Diclofenac Sodium [Voltaren Gel] 2 gram TOPICAL QID 05/28/16 05/28/16 Furosemide [Lasix] 1 tab PO DAILY 05/28/16 05/28/16 Ibuprofen [Advil] 100 mg PO DAILY PRN 05/28/16 05/28/16 Ipratropium [place] 0.06%Nasal 1 spray NASAL DAILY 05/28/16 05/28/16 [Atrovent Nasal 0.06%] [place] 1 drop BID 05/28/16 traMADol HCl [Ultram] 1 tab PO Q4H 05/28/16 05/28/16 Albuterol Nebulized [Ventolin 2.5 mg INHALATION RT-TID 04/29/22 04/29/22 Nebulized] Albuterol Sulfate [Ventolin HFA] 2 puff INHALATION RT-QID PRN 04/29/22 04/29/22 Ammonium Lactate Lotion 1 applic TOPICAL DAILY 04/29/22 04/29/22 [Lac-Hydrin 12% Lotion] Ascorbic Acid [Vitamin C] 500 mg PO DAILY 04/29/22 04/29/22 Cholecalciferol [Vitamin D3 (25 50 mcg PO DAILY 04/29/22 04/29/22 Mcg = 1000 Iu)] Cholestyramine (with Sugar) 4 gm PO DAILY 04/29/22 04/29/22 [Cholestyramine Powder] Donepezil HCl [Aricept] 10 mg PO DAILY 04/29/22 04/29/22 Ibuprofen [Motrin Ib] 400 mg PO Q6H PRN 04/29/22 04/29/22 Lactobacillus Rhamnosus GG 1 cap PO DAILY 04/29/22 04/29/22 [Culturelle] Loratadine [Claritin] 10 mg PO DAILY 04/29/22 04/29/22 Metoprolol Succinate [Metoprolol 25 mg PO DAILY 04/29/22 04/29/22 Succinate ER] Nystatin [Nystop] 1 applic TOPICAL BID 04/29/22 04/29/22 Omeprazole 20 mg PO DAILY 04/29/22 04/29/22 Zinc 50 mg PO DAILY 04/29/22 04/29/22 estradioL [Estring] 1 vag ring VAGINAL Q90D 04/29/22 04/29/22 Previous Rx's Medication Instructions Recorded Diclofenac Sodium Gel [Voltaren 2 gm TOPICAL QID #1 tube 05/28/16 Gel] traMADol HCl [Ultram] 50 mg PO Q4H PRN #150 tab 05/28/16 Cephalexin [Keflex] 250 mg PO Q6HR 5 Days #20 cap 05/03/22 QUEtiapine [SEROquel] 25 mg PO HS 30 Days #30 tab 05/03/22 levETIRAcetam [Keppra] 500 mg PO Q12HR 30 Days #60 tab 05/03/22 Cephalexin [Keflex] 500 mg PO Q6HR #12 cap 05/27/22 Cephalexin [Keflex] 500 mg PO Q12HR #14 cap 06/22/24 Allergies Allergy/AdvReac Type Severity Reaction Status Date / Time aspirin AdvReac Unknown Verified 06/22/24 11:03 Review of Systems ROS Statement: Those systems with pertinent positive or pertinent negative responses have been documented in the HPI. ROS Other: All systems not noted in ROS Statement are negative. 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 History of Any Multi-Drug Resistant Organisms: None Reported Past Surgical History: No Surgical Hx Reported Additional Past Surgical History / Comment(s): deviated septum, cervical biopsy, epidural injections Past Anesthesia/Blood Transfusion Reactions: No Reported Reaction Past Psychological History: No Psychological Hx Reported Smoking Status: Never smoker Past Alcohol Use History: None Reported Past Drug Use History: None Reported - Past Family History Mother Family Medical History: No Reported History General Exam Limitations: no limitations General appearance: alert, in no apparent distress Head exam: Present: atraumatic, normocephalic Eye exam: Present: normal appearance, PERRL ENT exam: Present: mucous membranes dry Neck exam: Present: normal inspection. Absent: tenderness, meningismus Respiratory exam: Present: normal lung sounds bilaterally. Absent: respiratory distress, wheezes Cardiovascular Exam: Present: regular rate, irregular rhythm GI/Abdominal exam: Present: soft. Absent: distended, tenderness, guarding Neurological exam: Present: alert Skin exam: Present: warm, dry Course Vital Signs 06/22/24 06/22/24 06/22/24 11:00 12:42 14:15 Temperature 98.5 F 99.2 F Pulse Rate 59 L 75 Respiratory 22 18 Rate Blood Pressure 114/86 122/82 115/74 O2 Sat by Pulse 95 Oximetry 06/22/24 14:45 Temperature 98.3 F Pulse Rate 72 Respiratory 18 Rate Blood Pressure 110/76 O2 Sat by Pulse 96 Oximetry Medical Decision Making - Medical Decision Making Was pt. sent in by a medical professional or institution (, PA, CHARGER, urgent care, hospital, or fci...) When possible be specific @ -No Did you speak to anyone other than the patient for history (EMS, parent, family, police, friend...)? What history was obtained from this source @ -Patient's caregiver Did you review nursing and triage notes (agree or disagree)? Why? @ -I reviewed and agree with nursing and triage notes Were old charts reviewed (outside hosp., previous admission, EMS record, old EKG, old radiological studies, urgent care reports/EKG's, fci records)? Report findings @ -No old charts were reviewed Differential Weakness: Hypoglycemia, shock, sepsis, hyponatremia, anemia, infection, [place], ETOH, adverse medicine reaction, overdose, stroke, this is not meant to be an all-inclusive list. EKG interpreted by me (3pts min.). @Sinus rhythm right bundle branch block rate of 88, CA interval 175, QRS duration 139, QTc [address] segment elevation. X-rays interpreted by me (1pt min.). @ -None done CT interpreted by me (1pt min.). @ -Brain negative for intracranial hemorrhage or mass effect, stable hydrocephalus from prior. U/S interpreted by me (1pt. min.). @ -None done What testing was considered but not performed or refused? (CT, X-rays, U/S, labs)? Why? @ -None What meds were considered but not given or refused? Why? @ -None Did you discuss the management of the patient with other professionals (professionals i.e. DrAbbie, PA, CHARGER, lab, RT, psych nurse, social worker clinical, aerial advertiser, teacher, chairman & chief executive officer, case investigator)? Give summary @ -No Was smoking cessation discussed for >3mins.? @ -No Was critical care preformed (if so, how long)? @ -No Were there social determinants of health that impacted care today? How? (Homelessness, low income, unemployed, alcoholism, drug addiction, transportation, low edu. Level, literacy, decrease access to med. care, snf, rehab)? @ -No Was there de-escalation of care discussed even if they declined (Discuss DNR or withdrawal of care, Hospice)? DNR status @ -No What co-morbidities impacted this encounter? (DM, HTN, Smoking, COPD, CAD, Cancer, CVA, ARF, Chemo, Hep., AIDS, mental health diagnosis, sleep apnea, morbid obesity)? @Advanced dementia Was patient admitted / discharged? Hospital course, mention meds given and route, prescriptions, significant lab abnormalities, going to OR and other pertinent info. @8-year-old female who is scheduled for outpatient head CT had an episode of vomiting and was brought to the emergency department. No further vomiting. Vital signs are stable. Patient is at baseline according to nursing staff who is familiar with the patient. Head CT shows no acute process. Patient does have a mild leukocytosis and nitrate positive urine. Given dose of antibiotics in the emergency department and prescribed Keflex for UTI. Return parameters discussed with caregiver. Undiagnosed new problem with uncertain prognosis? @ -No Drug Therapy requiring intensive monitoring for toxicity (Heparin, Nitro, Insulin, Cardizem)? @ -No Were any procedures done? @ -No Diagnosis/symptom? @ -Dementia, vomiting, UTI Acute, or Chronic, or Acute on Chronic? @ -chronic, acute, acute Uncomplicated (without systemic symptoms) or Complicated (systemic symptoms)? @ -Default Side effects of treatment? @ -No Exacerbation, Progression, or Severe Exacerbation? @ -No Poses a threat to life or bodily function? How? (Chest pain, [place], [place], pneumonia, PE, COPD, DKA, ARF, appy, cholecystitis, CVA, Diverticulitis, Homicidal, Suicidal, threat to staff... and all critical care pts) @ -moderate risk - Lab Data Result diagrams: 06/22/24 12:30 06/22/24 12:30 Lab Results 06/22/24 06/22/24 06/22/24 Range/Units 12:30 12:30 12:30 WBC 13.1 H (3.8-10.6) k/uL RBC 4.84 (3.80-5.40) m/uL Hgb 14.9 (11.4-16.0) gm/dL Hct 45.4 (34.0-46.0) % MCV 93.8 (80.0-100.0) fL MCH 30.8 (25.0-35.0) pg MCHC 32.9 (31.0-37.0) g/dL RDW 12.4 (11.5-15.5) % Plt Count 210 (150-450) k/uL MPV 8.9 Neutrophils % 90 % Lymphocytes % 4 % Monocytes % 4 % Eosinophils % 1 % Basophils % 0 % Neutrophils # 11.8 H (1.3-7.7) k/uL Lymphocytes # 0.6 L (1.0-4.8) k/uL Monocytes # 0.6 (0-1.0) k/uL Eosinophils # 0.1 (0-0.7) k/uL Basophils # 0.0 (0-0.2) k/uL Sodium 137 (137-145) mmol/L Potassium 4.6 (3.5-5.1) mmol/L Chloride 107 (98-107) mmol/L Carbon Dioxide 22 (22-30) mmol/L Anion Gap 8 mmol/L BUN 14 (7-17) mg/dL Creatinine 0.70 (0.52-1.04) mg/dL Est GFR (CKD-EPI)AfAm >90 (>60 ml/min/1.73 sqM) Est GFR (CKD-EPI)NonAf 83 (>60 ml/min/1.73 sqM) Glucose 143 H (74-99) mg/dL Calcium 9.6 (8.4-10.2) mg/dL Total Bilirubin 1.2 (0.2-1.3) mg/dL AST 27 (14-36) U/L ALT 15 (4-34) U/L Alkaline Phosphatase 93 (38-126) U/L Total Protein 7.7 (6.3-8.2) g/dL Albumin 4.2 (3.5-5.0) g/dL Urine Color Yellow Urine Appearance Cloudy H (Clear) Urine pH 5.5 (5.0-8.0) Ur Specific Herman 1.025 (1.001-1.035) Urine Protein Trace H (Negative) Urine Glucose (UA) Negative (Negative) Urine Ketones Negative (Negative) Urine Blood Moderate H (Negative) Urine Nitrite Positive H (Negative) Urine Bilirubin Negative (Negative) Urine Urobilinogen <2.0 (<2.0) mg/dL Ur Leukocyte Esterase Negative (Negative) Urine RBC 19 H (0-5) /hpf Urine WBC 2 (0-5) /hpf Ur Squamous Epith Cells <1 (0-4) /hpf Urine Bacteria Occasional H (None) /hpf Urine Mucus Few H (None) /hpf Urine Yeast (Budding) Many H (None) /hpf Disposition Clinical Impression: Dehydration, Nausea & vomiting Disposition: HOME SELF-CARE Condition: Fair Instructions (If sedation given, give patient instructions): Acute Nausea and Vomiting (ED) Prescriptions: Cephalexin [Keflex] 500 mg PO Q12HR #14 cap Is patient prescribed a controlled substance at d/c from ED?: No Referrals: Mery Schmid DO [Primary Care Provider] - 1-2 days Time of Disposition: 14:23
[2024-06-22 13:31] LABS: Basophils % (A) 0 %; Eosinophils # (A) 0.1 k/uL (0-0.7); Eosinophils % (A) 1 %; HCT 45.4 % (34.0-46.0); HGB 14.9 gm/dL (11.4-16.0); Lymphocytes # (A) 0.6 k/uL (1.0-4.8); Lymphocytes % (A) 4 %; MCH 30.8 pg (25.0-35.0); MCHC 32.9 g/dL (31.0-37.0); MCV 93.8 fL (80.0-100.0); Mean Platelet Volume 8.9; Monocytes # (A) 0.6 k/uL (0-1.0); Monocytes % (A) 4 %; Neutrophils # (A) 11.8 k/uL (1.3-7.7); Neutrophils % (A) 90 %; Platelet Count 210 k/uL (150-450); RBC 4.84 m/uL (3.80-5.40); RDW 12.4 % (11.5-15.5); WBC 13.1 k/uL (3.8-10.6)
[2024-06-22 13:47] LABS: ALT 15 U/L (4-34); African American GFR (CKD) >90 (>60 ml/min/1.73 sqM); Albumin 4.2 g/dL (3.5-5.0); Anion Gap 8 mmol/L; Blood Urea Nitrogen 14 mg/dL (7-17); Calcium 9.6 mg/dL (8.4-10.2); Carbon Dioxide 22 mmol/L (22-30); Chloride 107 mmol/L (98-107); Glucose 143 mg/dL (74-99); Non-African American GFR(CKD) 83 (>60 ml/min/1.73 sqM); Sodium 137 mmol/L (137-145); Total Bilirubin 1.2 mg/dL (0.2-1.3); Total Protein 7.7 g/dL (6.3-8.2)
[2024-06-22 13:50] LABS: AST 27 U/L (14-36); Alkaline Phosphatase 93 U/L (38-126); Potassium 4.6 mmol/L (3.5-5.1)
[2024-06-22 13:52] LABS: Appearance,Urine Cloudy (Clear); Bacteria,Urine Occasional /hpf; Bilirubin,Urine Negative (Negative); Blood,Urine Moderate (Negative); Budding Yeast,Urine Many /hpf; Color,Urine Yellow; Glucose,Urine (UA) Negative (Negative); Ketones,Urine Negative (Negative); Leukocyte Esterase,Urine Negative (Negative); Mucus,Urine Few /hpf; Nitrite,Urine Positive (Negative); PH, Urine 5.5 (5.0-8.0); Protein,Urine Trace (Negative); RBC,Urine 19 /hpf (0-5); Specific Gravity,Urine 1.025 (1.001-1.035); Squamous Epithelial Cell,Urine <1 /hpf (0-4); Urobilinogen,Urine <2.0 mg/dL (<2.0); WBC,Urine 2 /hpf (0-5)
--- NOTE | 2024-06-22 14:17 | CT ---
EXAMINATION TYPE: CT brain wo con DATE OF EXAM: 06/22/2024 COMPARISON: 04/29/2022 INDICATION: ams DLP: 1215.7 mGycm, Automated exposure control for dose reduction was used. CONTRAST: None CT of the brain is performed utilizing 3 mm thick sections through the posterior fossa and 3 mm thick sections through the remaining calvarium. Study is performed within 24 hours of arrival to the hosp ital. No abnormal hyperdensity is present to suggest an acute intracranial hemorrhage. No mass lesion is evident. No acute infarcts are evident. There is marked dilatation of the ventricles including the temporal horns lateral ventricles. Sulci a re mild prominence. Focal correlation for hydrocephalus is recommended. Findings however appear stabl e over the interval. Hyperostosis frontalis internus, normal variant, is present. Paranasal sinuses and mastoid air cells within the [id number] are clear. IMPRESSION: 1. No acute intracranial process. Follow up MRI can be performed as clinically indicated. 2. Marked hydrocephalus, stable from comparison. [facility], Workstation: [facility], 06/22/2024 2:14 PM
[2024-06-22 14:23] VITALS: RESP 18
[2024-06-22] MEDS: cefTRIAXone IN SWFI 1,000 MG/10 ML SYRINGE IVP STA (14:29)
[2024-06-22 14:48] VITALS: BP 110/76; PULSE 72; TEMP 98.3
== END 2024-06-22 14:59 | disposition home or self-care (01) ==
LOC: EC 10:58
CPT/HCPCS: 36415; 70450; 80053; 81001; 85025; 93005; 96374; 99284

== ENCOUNTER 2024-12-22 11:38 | Inpatient (IN) | payer OTHER ==
[2024-12-22] MEDS: LACTATED RINGERS 1,000 ML IV SCH ×3 (12:13→17:40)
--- NOTE | 2024-12-22 12:14 | ED ---
Altered Mental Status HPI - General Chief Complaint: Altered Mental Status Stated Complaint: AMS Time Seen by Provider: 12/22/24 11:39 Source: family, EMS, RN notes reviewed Mode of arrival: EMS Limitations: altered mental status - History of Present Illness Initial Comments: This is a 78-year-old female who presents to the emergency department for alter ed mental status. Patient lives in an AF home and is A&O x 1 at baseline. She was reportedly found to be increasingly altered and essentially only responsive to painful stimuli. They also noted her to be very hypotensive with a BP of 70/50. EMS gave the patient a 500 mL bolus of normal saline with improvement in blood pressure. Patient not answering any questions at this time. They are unsure when she was last known well. Family at bedside advised that she is limited in her ability to communicate, but is usually much more responsive and active than this. MD Complaint: altered mental status - Related Data Home Medications Medication Instructions Recorded Confirmed Cholecalciferol [Vitamin D3 (25 50 mcg PO DAILY 04/29/22 12/22/24 Mcg = 1000 Iu)] Donepezil HCl [Aricept] 10 mg PO DAILY 04/29/22 12/22/24 Budesonide 0.5 mg INHALATION RT-BID 12/22/24 12/22/24 Cholestyramine (with Sugar) 4 gm PO DAILY 12/22/24 12/22/24 [Cholestyramine Packet] FLUoxetine HCL [PROzac] 20 mg PO DAILY 12/22/24 12/22/24 Lactobacillus Acidophilus 1 cap PO DAILY 12/22/24 12/22/24 [Acidophilus] Magnesium Hydroxide [Milk of 2,400 mg PO Q2D PRN 12/22/24 12/22/24 Magnesia] Metoprolol Tartrate [Lopressor] 12.5 mg PO DAILY 12/22/24 12/22/24 Pimecrolimus 1 applic TOPICAL DAILY 12/22/24 12/22/24 haloperidoL [Haldol] 1 mg PO DAILY 12/22/24 12/22/24 levETIRAcetam [Keppra] 500 mg PO BID 12/22/24 12/22/24 Allergies Allergy/AdvReac Type Severity Reaction Status Date / Time aspirin AdvReac Unknown Verified 12/22/24 12:00 Review of Systems ROS Statement: Those systems with pertinent positive or pertinent negative responses have been documented in the HPI. ROS Other: All systems not noted in ROS Statement are negative. 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 History of Any Multi-Drug Resistant Organisms: None Reported Past Surgical History: No Surgical Hx Reported Additional Past Surgical History / Comment(s): deviated septum, cervical biopsy, epidural injections Past Anesthesia/Blood Transfusion Reactions: No Reported Reaction Past Psychological History: No Psychological Hx Reported Smoking Status: Never smoker Past Alcohol Use History: None Reported Past Drug Use History: None Reported - Past Family History Mother Family Medical History: No Reported History General Exam Limitations: no limitations General appearance: in no apparent distress, lethargic Head exam: Present: atraumatic, normocephalic, normal inspection Eye exam: Present: normal appearance, PERRL, EOMI. Absent: scleral icterus, conjunctival injection, periorbital swelling Respiratory exam: Present: normal lung sounds bilaterally. Absent: respiratory distress, wheezes, rales, rhonchi, stridor Cardiovascular Exam: Present: normal rhythm, tachycardia GI/Abdominal exam: Present: soft. Absent: distended Neurological exam: Present: other (Alert to painful stimuli, oriented x 0) Skin exam: Present: warm, dry Course Vital Signs 12/22/24 12/22/24 12/22/24 11:40 12:05 12:29 Temperature 98.6 F 103.1 F H Pulse Rate 113 H Pulse Rate [ [employer] ] Respiratory 20 Rate Blood Pressure 99/74 80/64 Blood Pressure [Right Arm] O2 Sat by Pulse 94 L Oximetry 12/22/24 12/22/24 12/22/24 12:41 13:07 14:08 Temperature Pulse Rate 106 H 105 H 85 Pulse Rate [ [employer] ] Respiratory 20 30 H 20 Rate Blood Pressure 86/63 91/69 92/61 Blood Pressure [Right Arm] O2 Sat by Pulse 94 L 96 96 Oximetry 12/22/24 12/22/24 12/22/24 14:18 15:00 15:48 Temperature 99 F Pulse Rate 90 89 Pulse Rate [ [employer] ] Respiratory 21 18 Rate Blood Pressure 98/67 109/82 Blood Pressure [Right Arm] O2 Sat by Pulse 96 99 Oximetry 04/09/25 04/09/25 04/09/25 16:04 17:16 18:40 Temperature Pulse Rate 89 92 86 Pulse Rate [ [employer] ] Respiratory 19 30 H 20 Rate Blood Pressure 122/86 118/83 94/66 Blood Pressure [Right Arm] O2 Sat by Pulse 96 99 Oximetry 12/22/24 12/22/24 12/23/24 20:00 23:55 01:00 Temperature 96.3 F L 96.9 F L Pulse Rate Pulse Rate [ 86 85 84 [employer] ] Respiratory 18 18 17 Rate Blood Pressure Blood Pressure 88/66 99/69 91/69 [Right Arm] O2 Sat by Pulse 99 99 97 Oximetry 12/23/24 12/23/24 12/23/24 01:56 04:00 05:05 Temperature 97.3 F L 98.0 F Pulse Rate Pulse Rate [ 94 96 [employer] ] Respiratory 25 H 25 H Rate Blood Pressure Blood Pressure 109/89 105/89 [Right Arm] O2 Sat by Pulse 96 96 Oximetry 12/23/24 12/23/24 12/23/24 08:31 11:19 12:48 Temperature 97.9 F 98.1 F Pulse Rate Pulse Rate [ 101 H 116 H 116 H [employer] ] Respiratory 30 H 33 H 33 H Rate Blood Pressure Blood Pressure 99/73 110/82 [Right Arm] O2 Sat by Pulse 96 96 Oximetry 12/23/24 12/23/24 12/23/24 14:32 16:41 19:52 Temperature 98 F 97.4 F L Pulse Rate 125 H Pulse Rate [ 116 H 121 H [employer] ] Respiratory 33 H 36 H 22 Rate Blood Pressure Blood Pressure 103/86 101/56 [Right Arm] O2 Sat by Pulse 96 95 Oximetry 12/23/24 12/23/24 19:58 20:38 Temperature Pulse Rate 122 H 123 H Pulse Rate [ [employer] ] Respiratory 22 30 H Rate Blood Pressure 101/80 Blood Pressure [Right Arm] O2 Sat by Pulse 97 Oximetry Procedures - Sepsis Sepsis Focused Exam #1 Time Sepsis Criteria Met: 12:30 Sepsis Focused Exam Date: 12/22/24 Sepsis Focused Exam Time: 15:00 Sepsis Focused Exam Complete: Yes Vital Signs & RN Notes Reviewed: Yes Capillary Refill: < 2 Seconds: Fingers, Toes Peripheral Pulses: Normal: Radial (R), Radial (L), Posterior Tibialis (R), Posterior Tibialis (L), Dorsalis Pedis (R), Dorsalis Pedis (L) Skin Color: Normal for Patient Respiratory Exam: normal lung sounds Cardiovascular Exam: regular rate, normal rhythm Medical Decision Making - Medical Decision Making This is a 78-year-old female who presents to the emergency department for altered mental status. Was pt. sent in by a medical professional or institution? @ -No Did you speak to anyone other than the patient for history? @ -EMS and family provided all of the history. Did you review nursing and triage notes? @ -Yes, and I agree, it is accurate with regards to the patient's symptoms. Were old charts reviewed? @ -No Differential Diagnosis? @ -Differential Altered Mental Status: Hypoglycemia, DKA, hypercapnia, ETOH, overdose, CO poisoning, trauma, myxedema coma, HTN encephalopathy, infection, encephalitis, psychosis, intercranial hemorrhage, hepatic encephalopathy, meningitis, CVA, this is not meant to be an all-inclusive list EKG interpreted by me (3pts min.)? @ -EKG interpreted by me demonstrating the following: Sinus tachycardia. Ventricular rate 112 bpm, CT interval 140 ms, QRS duration 119 ms, QTc 409 ms. X-rays interpreted by me (1pt min.)? @ -Chest x-ray obtained, my interpretation identifies no localized consolidations or infiltrates. CT interpreted by me (1pt min.)? @ -CT scan of the brain obtained. My interpretation identifies no acute intr acranial hemorrhage. U/S interpreted by me (1pt. min.)? @ -Not obtained What testing was considered but not performed? (CT, X-rays, U/S, labs)? Why? @ -None What meds were considered but not given? Why? @ -None Did you discuss the management of the patient with other professionals? @ -Yes, Miguel Escudero with [facility] who accepts the patient for admission Did you reconcile home meds? @ -No Was smoking cessation discussed for >3mins.? @ -No Was critical care preformed (if so, how long)? @ -Yes, >35 minutes Were there social determinants of health that impacted care today? How? (Homelessness, low income, unemployed, alcoholism, drug addiction, transportation, low edu. Level, literacy, decrease access to med. care, fpc, rehab)? @ -No Was there de-escalation of care discussed even if they declined? (Discuss DNR or withdrawal of care, Hospice)? @ -Yes, CODE STATUS discussed with patient's family who advised that she wishes to be a DNR in terms of CPR and intubation. However, she is agreeable to any other treatment needed. What co-morbidities impacted this encounter? (DM, HTN, Smoking, COPD, CAD, Cancer, CVA, Hep., AIDS, mental health diagnosis, sleep apnea, morbid obesity)? @ -Dementia Was patient admitted / discharged? @ -Admitted. Patient febrile on arrival with a rectal temperature of 103.1 F. She was also found to be tachycardic. Urinalysis consistent with infection. Results of her urinalysis returned at approximately 1230 and she met sepsis criteria based on the SIRS criteria of her temperature and tachycardia with associated infection. Sepsis protocol initiated with a 2500 mL bolus of lactated Ringer's per the 30 to 40 ml/kg fluid bolus requirement. Maintenance fluids initiated at 130 mL an hour. Blood cultures obtained and 2 g of ceftriaxone was administered. Her lab work returned with multiple irregularities including leukocytosis with a WBC of 26.25. Hemoglobin 20.8, sodium 161, BUN 110, creatinine 3.3, eGFR 13, and lactic acid of 6.1. Troponin also elevated 0.308. She had been persistently hypotensive and was given additional fluid for a total of 4 L of lactated Ringer's. BP then started to improve. Care discussed with ED attending, Dr. العراقي, who advised the addition of vancomycin for additional coverage. Patient admitted to medicine for severe sepsis related to the UTI, hypernatremia, YAHIR, and elevated troponin. Consult placed for infectious disease and nephrology. Undiagnosed new problem with uncertain prognosis? @ -None Drug Therapy requiring intensive monitoring for toxicity (Heparin, Nitro, Insulin, Cardizem)? @ -None Were any procedures done? @ -Sepsis focused exam Diagnosis/symptom? @ -UTI, severe sepsis, hypernatremia, YAHIR, elevated troponin Acute, or Chronic, or Acute on Chronic? @ -Acute Uncomplicated (without systemic symptoms) or Complicated (systemic symptoms)? @ -Complicated Side effects of treatment? @ -None Exacerbation, Progression, or Severe Exacerbation] @ -Not applicable Poses a threat to life or bodily function? @ -Yes, can lead to - Lab Data Result diagrams: 12/23/24 09:19 12/23/24 19:27 Lab Results 12/22/24 12/22/24 12/22/24 Range/Units 11:58 11:58 11:58 WBC 26.25 H (4.50-10.00) 10*3/uL RBC 6.62 H (4.10-5.20) 10*6/uL Hgb 20.8 H* (12.0-15.0) g/dL Hct 64.0 H* (37.2-46.3) % MCV 96.7 (80.0-97.0) fL MCH 31.4 (27.0-32.0) pg MCHC 32.5 (32.0-37.0) g/dL Plt Count 80 L (140-440) 10*3/uL MPV 13.3 H (9.5-12.2) fL Immature Gran % (Auto) 1.0 % Neutrophils % 88.6 % Neutrophils % (Manual) % Lymphocytes % 2.7 % Lymphocytes % (Manual) % Monocytes % 7.4 % Monocytes % (Manual) % Eosinophils % 0.0 % Basophils % 0.3 % Immature Gran # 0.27 H (0.00-0.04) 10*3/uL Neutrophils # 23.25 H (1.80-7.70) 10*3/uL Neutrophils # (Manual) (1.3-7.7) k/uL Lymphocytes # 0.71 L (0.90-5.00) 10*3/uL Lymphocytes # (Manual) (1.0-4.8) k/uL Monocytes # 1.95 H (0.20-1.00) 10*3/uL Monocytes # (Manual) (0-1.0) k/uL Eosinophils # 0.00 L (0.04-0.35) 10*3/uL Basophils # 0.07 (0.00-0.10) 10*3/uL Nucleated RBCs (0-0) /100 WBC Manual Slide Review Performed Large Platelets PT 28.3 H (10.0-12.5) sec INR 2.8 H (<1.2) APTT 26.2 (22.0-30.0) sec Sodium (137-145) mmol/L Potassium (3.5-5.1) mmol/L Chloride (98-107) mmol/L Carbon Dioxide (22-30) mmol/L Anion Gap mmol/L BUN (7-17) mg/dL Creatinine (0.52-1.04) mg/dL Est GFR (CKD-EPI)AfAm (>60 ml/min/1.73 sqM) Est GFR (CKD-EPI)NonAf (>60 ml/min/1.73 sqM) Glucose (74-99) mg/dL Lactic Ac Sepsis Rflx Plasma Lactic Acid Jules (0.7-2.0) mmol/L Calcium (8.4-10.2) mg/dL Total Bilirubin (0.2-1.3) mg/dL AST (14-36) U/L ALT (4-34) U/L Alkaline Phosphatase (38-126) U/L Creatine Kinase (30-135) U/L Troponin I (0.000-0.034) ng/mL Total Protein (6.3-8.2) g/dL Albumin (3.5-5.0) g/dL Urine Color Yellow Urine Appearance Cloudy H (Clear) Urine pH 5.0 (5.0-8.0) Ur Specific [place] 1.022 (1.001-1.035) Urine Protein Trace H (Negative) Urine Glucose (UA) Negative (Negative) Urine Ketones Trace H (Negative) Urine Blood Large H (Negative) Urine Nitrite Negative (Negative) Urine Bilirubin Negative (Negative) Urine Urobilinogen 2.0 (<2.0) mg/dL Ur Leukocyte Esterase Moderate H (Negative) Urine RBC 53 H (0-5) /hpf Urine WBC 30 H (0-5) /hpf Ur Squamous Epith Cells 5 H (0-4) /hpf Urine Bacteria Many H (None) /hpf Hyaline Casts 91 H (0-2) /lpf Urine Mucus Many H (None) /hpf Influenza Type A (PCR) (Not Detectd) Influenza Type B (PCR) (Not Detectd) RSV (PCR) (Not Detectd) SARS-CoV-2 (PCR) (Not Detectd) 12/22/24 12/22/24 12/22/24 Range/Units 11:58 11:58 11:58 WBC (4.50-10.00) 10*3/uL RBC (4.10-5.20) 10*6/uL Hgb (12.0-15.0) g/dL Hct (37.2-46.3) % MCV (80.0-97.0) fL MCH (27.0-32.0) pg MCHC (32.0-37.0) g/dL Plt Count (140-440) 10*3/uL MPV (9.5-12.2) fL Immature Gran % (Auto) % Neutrophils % % Neutrophils % (Manual) % Lymphocytes % % Lymphocytes % (Manual) % Monocytes % % Monocytes % (Manual) % Eosinophils % % Basophils % % Immature Gran # (0.00-0.04) 10*3/uL Neutrophils # (1.80-7.70) 10*3/uL Neutrophils # (Manual) (1.3-7.7) k/uL Lymphocytes # (0.90-5.00) 10*3/uL Lymphocytes # (Manual) (1.0-4.8) k/uL Monocytes # (0.20-1.00) 10*3/uL Monocytes # (Manual) (0-1.0) k/uL Eosinophils # (0.04-0.35) 10*3/uL Basophils # (0.00-0.10) 10*3/uL Nucleated RBCs (0-0) /100 WBC Manual Slide Review Large Platelets PT (10.0-12.5) sec INR (<1.2) APTT (22.0-30.0) sec Sodium 161 H* (137-145) mmol/L Potassium 5.3 H (3.5-5.1) mmol/L Chloride 123 H (98-107) mmol/L Carbon Dioxide 14 L (22-30) mmol/L Anion Gap 24 mmol/L BUN 110 H* (7-17) mg/dL Creatinine 3.31 H (0.52-1.04) mg/dL Est GFR (CKD-EPI)AfAm 15 (>60 ml/min/1.73 sqM) Est GFR (CKD-EPI)NonAf 13 (>60 ml/min/1.73 sqM) Glucose 168 H (74-99) mg/dL Lactic Ac Sepsis Rflx Plasma Lactic Acid Jules 6.1 H* (0.7-2.0) mmol/L Calcium 10.7 H (8.4-10.2) mg/dL Total Bilirubin 2.5 H (0.2-1.3) mg/dL AST 67 H (14-36) U/L ALT 40 H (4-34) U/L Alkaline Phosphatase 100 (38-126) U/L Creatine Kinase (30-135) U/L Troponin I (0.000-0.034) ng/mL Total Protein 8.1 (6.3-8.2) g/dL Albumin 4.1 (3.5-5.0) g/dL Urine Color Urine Appearance (Clear) Urine pH (5.0-8.0) Ur Specific [place] (1.001-1.035) Urine Protein (Negative) Urine Glucose (UA) (Negative) Urine Ketones (Negative) Urine Blood (Negative) Urine Nitrite (Negative) Urine Bilirubin (Negative) Urine Urobilinogen (<2.0) mg/dL Ur Leukocyte Esterase (Negative) Urine RBC (0-5) /hpf Urine WBC (0-5) /hpf Ur Squamous Epith Cells (0-4) /hpf Urine Bacteria (None) /hpf Hyaline Casts (0-2) /lpf Urine Mucus (None) /hpf Influenza Type A (PCR) Not Detected (Not Detectd) Influenza Type B (PCR) Not Detected (Not Detectd) RSV (PCR) Not Detected (Not Detectd) SARS-CoV-2 (PCR) Not Detected (Not Detectd) 12/22/24 12/22/24 12/22/24 Range/Units 11:58 12:07 12:58 WBC (4.50-10.00) 10*3/uL RBC (4.10-5.20) 10*6/uL Hgb (12.0-15.0) g/dL Hct (37.2-46.3) % MCV (80.0-97.0) fL MCH (27.0-32.0) pg MCHC (32.0-37.0) g/dL Plt Count (140-440) 10*3/uL MPV (9.5-12.2) fL Immature Gran % (Auto) % Neutrophils % % Neutrophils % (Manual) % Lymphocytes % % Lymphocytes % (Manual) % Monocytes % % Monocytes % (Manual) % Eosinophils % % Basophils % % Immature Gran # (0.00-0.04) 10*3/uL Neutrophils # (1.80-7.70) 10*3/uL Neutrophils # (Manual) (1.3-7.7) k/uL Lymphocytes # (0.90-5.00) 10*3/uL Lymphocytes # (Manual) (1.0-4.8) k/uL Monocytes # (0.20-1.00) 10*3/uL Monocytes # (Manual) (0-1.0) k/uL Eosinophils # (0.04-0.35) 10*3/uL Basophils # (0.00-0.10) 10*3/uL Nucleated RBCs (0-0) /100 WBC Manual Slide Review Large Platelets PT (10.0-12.5) sec INR (<1.2) APTT (22.0-30.0) sec Sodium (137-145) mmol/L Potassium (3.5-5.1) mmol/L Chloride (98-107) mmol/L Carbon Dioxide (22-30) mmol/L Anion Gap mmol/L BUN (7-17) mg/dL Creatinine (0.52-1.04) mg/dL Est GFR (CKD-EPI)AfAm (>60 ml/min/1.73 sqM) Est GFR (CKD-EPI)NonAf (>60 ml/min/1.73 sqM) Glucose (74-99) mg/dL Lactic Ac Sepsis Rflx Y Plasma Lactic Acid Jules (0.7-2.0) mmol/L Calcium (8.4-10.2) mg/dL Total Bilirubin (0.2-1.3) mg/dL AST (14-36) U/L ALT (4-34) U/L Alkaline Phosphatase (38-126) U/L Creatine Kinase 103 (30-135) U/L Troponin I 0.308 H* (0.000-0.034) ng/mL Total Protein (6.3-8.2) g/dL Albumin (3.5-5.0) g/dL Urine Color Urine Appearance (Clear) Urine pH (5.0-8.0) Ur Specific [place] (1.001-1.035) Urine Protein (Negative) Urine Glucose (UA) (Negative) Urine Ketones (Negative) Urine Blood (Negative) Urine Nitrite (Negative) Urine Bilirubin (Negative) Urine Urobilinogen (<2.0) mg/dL Ur Leukocyte Esterase (Negative) Urine RBC (0-5) /hpf Urine WBC (0-5) /hpf Ur Squamous Epith Cells (0-4) /hpf Urine Bacteria (None) /hpf Hyaline Casts (0-2) /lpf Urine Mucus (None) /hpf Influenza Type A (PCR) (Not Detectd) Influenza Type B (PCR) (Not Detectd) RSV (PCR) (Not Detectd) SARS-CoV-2 (PCR) (Not Detectd) 12/22/24 12/22/24 12/22/24 Range/Units 15:22 16:18 16:18 WBC 28.47 H (4.50-10.00) 10*3/uL RBC 5.53 H (4.10-5.20) 10*6/uL Hgb 17.5 H D (12.0-15.0) g/dL Hct 53.8 H (37.2-46.3) % MCV 97.3 H (80.0-97.0) fL MCH 31.6 (27.0-32.0) pg MCHC 32.5 (32.0-37.0) g/dL Plt Count 40 L* (140-440) 10*3/uL MPV 13.5 H (9.5-12.2) fL Immature Gran % (Auto) 1.3 % Neutrophils % % Neutrophils % (Manual) 95 % Lymphocytes % % Lymphocytes % (Manual) 2 % Monocytes % % Monocytes % (Manual) 3 % Eosinophils % % Basophils % % Immature Gran # 0.36 H (0.00-0.04) 10*3/uL Neutrophils # (1.80-7.70) 10*3/uL Neutrophils # (Manual) 27.05 H (1.3-7.7) k/uL Lymphocytes # (0.90-5.00) 10*3/uL Lymphocytes # (Manual) 0.57 L (1.0-4.8) k/uL Monocytes # (0.20-1.00) 10*3/uL Monocytes # (Manual) 0.85 (0-1.0) k/uL Eosinophils # (0.04-0.35) 10*3/uL Basophils # (0.00-0.10) 10*3/uL Nucleated RBCs 0 (0-0) /100 WBC Manual Slide Review Performed Large Platelets Present PT (10.0-12.5) sec INR (<1.2) APTT (22.0-30.0) sec Sodium 153 H (137-145) mmol/L Potassium 4.8 (3.5-5.1) mmol/L Chloride 121 H (98-107) mmol/L Carbon Dioxide 18 L (22-30) mmol/L Anion Gap 14 mmol/L BUN 102 H* (7-17) mg/dL Creatinine 2.54 H (0.52-1.04) mg/dL Est GFR (CKD-EPI)AfAm 20 (>60 ml/min/1.73 sqM) Est GFR (CKD-EPI)NonAf 17 (>60 ml/min/1.73 sqM) Glucose 162 H (74-99) mg/dL Lactic Ac Sepsis Rflx Plasma Lactic Acid Jules 4.6 H* (0.7-2.0) mmol/L Calcium 9.6 (8.4-10.2) mg/dL Total Bilirubin 2.2 H (0.2-1.3) mg/dL AST 70 H (14-36) U/L ALT 34 (4-34) U/L Alkaline Phosphatase 82 (38-126) U/L Creatine Kinase (30-135) U/L Troponin I (0.000-0.034) ng/mL Total Protein 6.4 (6.3-8.2) g/dL Albumin 3.0 L (3.5-5.0) g/dL Urine Color Urine Appearance (Clear) Urine pH (5.0-8.0) Ur Specific [place] (1.001-1.035) Urine Protein (Negative) Urine Glucose (UA) (Negative) Urine Ketones (Negative) Urine Blood (Negative) Urine Nitrite (Negative) Urine Bilirubin (Negative) Urine Urobilinogen (<2.0) mg/dL Ur Leukocyte Esterase (Negative) Urine RBC (0-5) /hpf Urine WBC (0-5) /hpf Ur Squamous Epith Cells (0-4) /hpf Urine Bacteria (None) /hpf Hyaline Casts (0-2) /lpf Urine Mucus (None) /hpf Influenza Type A (PCR) (Not Detectd) Influenza Type B (PCR) (Not Detectd) RSV (PCR) (Not Detectd) SARS-CoV-2 (PCR) (Not Detectd) 12/22/24 Range/Units 16:18 WBC (4.50-10.00) 10*3/uL RBC (4.10-5.20) 10*6/uL Hgb (12.0-15.0) g/dL Hct (37.2-46.3) % MCV (80.0-97.0) fL MCH (27.0-32.0) pg MCHC (32.0-37.0) g/dL Plt Count (140-440) 10*3/uL MPV (9.5-12.2) fL Immature Gran % (Auto) % Neutrophils % % Neutrophils % (Manual) % Lymphocytes % % Lymphocytes % (Manual) % Monocytes % % Monocytes % (Manual) % Eosinophils % % Basophils % % Immature Gran # (0.00-0.04) 10*3/uL Neutrophils # (1.80-7.70) 10*3/uL Neutrophils # (Manual) (1.3-7.7) k/uL Lymphocytes # (0.90-5.00) 10*3/uL Lymphocytes # (Manual) (1.0-4.8) k/uL Monocytes # (0.20-1.00) 10*3/uL Monocytes # (Manual) (0-1.0) k/uL Eosinophils # (0.04-0.35) 10*3/uL Basophils # (0.00-0.10) 10*3/uL Nucleated RBCs (0-0) /100 WBC Manual Slide Review Large Platelets PT (10.0-12.5) sec INR (<1.2) APTT (22.0-30.0) sec Sodium (137-145) mmol/L Potassium (3.5-5.1) mmol/L Chloride (98-107) mmol/L Carbon Dioxide (22-30) mmol/L Anion Gap mmol/L BUN (7-17) mg/dL Creatinine (0.52-1.04) mg/dL Est GFR (CKD-EPI)AfAm (>60 ml/min/1.73 sqM) Est GFR (CKD-EPI)NonAf (>60 ml/min/1.73 sqM) Glucose (74-99) mg/dL Lactic Ac Sepsis Rflx Plasma Lactic Acid Jules (0.7-2.0) mmol/L Calcium (8.4-10.2) mg/dL Total Bilirubin (0.2-1.3) mg/dL AST (14-36) U/L ALT (4-34) U/L Alkaline Phosphatase (38-126) U/L Creatine Kinase (30-135) U/L Troponin I 0.422 H* (0.000-0.034) ng/mL Total Protein (6.3-8.2) g/dL Albumin (3.5-5.0) g/dL Urine Color Urine Appearance (Clear) Urine pH (5.0-8.0) Ur Specific [place] (1.001-1.035) Urine Protein (Negative) Urine Glucose (UA) (Negative) Urine Ketones (Negative) Urine Blood (Negative) Urine Nitrite (Negative) Urine Bilirubin (Negative) Urine Urobilinogen (<2.0) mg/dL Ur Leukocyte Esterase (Negative) Urine RBC (0-5) /hpf Urine WBC (0-5) /hpf Ur Squamous Epith Cells (0-4) /hpf Urine Bacteria (None) /hpf Hyaline Casts (0-2) /lpf Urine Mucus (None) /hpf Influenza Type A (PCR) (Not Detectd) Influenza Type B (PCR) (Not Detectd) RSV (PCR) (Not Detectd) SARS-CoV-2 (PCR) (Not Detectd) - Radiology Data Radiology results: report reviewed, image reviewed Critical Care Time Critical Care Time: Yes Critical Care Time: >35 minutes Disposition Clinical Impression: UTI (urinary tract infection), YAHIR (acute kidney injury), Hypernatremia, Severe sepsis, Elevated troponin Disposition: ADMITTED IP TO THIS HOSP
[2024-12-22 12:20] LABS: Appearance,Urine Cloudy (Clear); Bacteria,Urine Many /hpf; Bilirubin,Urine Negative (Negative); Blood,Urine Large (Negative); Color,Urine Yellow; Glucose,Urine (UA) Negative (Negative); Hyaline Casts,Urine 91 /lpf (0-2); Ketones,Urine Trace (Negative); Leukocyte Esterase,Urine Moderate (Negative); Mucus,Urine Many /hpf; Nitrite,Urine Negative (Negative); Protein,Urine Trace (Negative); RBC,Urine 53 /hpf (0-5); Specific Gravity,Urine 1.022 (1.001-1.035); Squamous Epithelial Cell,Urine 5 /hpf (0-4); WBC,Urine 30 /hpf (0-5)
[2024-12-22] MEDS: ACETAMINOPHEN IV (For NPO) 1,000 MG in EMPTY BAG 1 BAG IVPB STA (12:22)
[2024-12-22 12:26] LABS: Basophils # (A) 0.07 10*3/uL (0.00-0.10); Basophils % (A) 0.3 %; Lymphocytes # (A) 0.71 10*3/uL (0.90-5.00); Lymphocytes % (A) 2.7 %; MCH 31.4 pg (27.0-32.0); MCHC 32.5 g/dL (32.0-37.0); MCV 96.7 fL (80.0-97.0); Mean Platelet Volume 13.3 fL (9.5-12.2); Monocytes # (A) 1.95 10*3/uL (0.20-1.00); Monocytes % (A) 7.4 %; Neutrophils # (A) 23.25 10*3/uL (1.80-7.70); Neutrophils % (A) 88.6 %; RBC 6.62 10*6/uL (4.10-5.20); WBC 26.25 10*3/uL (4.50-10.00)
[2024-12-22 12:37] LABS: INR 2.8 (<1.2); Partial Thromboplastin Time 26.2 sec (22.0-30.0); Prothrombin Time 28.3 sec (10.0-12.5)
[2024-12-22 12:40] LABS: AST 67 U/L (14-36); Albumin 4.1 g/dL (3.5-5.0); Alkaline Phosphatase 100 U/L (38-126); Anion Gap 24 mmol/L; Calcium 10.7 mg/dL (8.4-10.2); Carbon Dioxide 14 mmol/L (22-30); Chloride 123 mmol/L (98-107); Glucose 168 mg/dL (74-99); Total Bilirubin 2.5 mg/dL (0.2-1.3); Total Protein 8.1 g/dL (6.3-8.2)
[2024-12-22 12:46] LABS: African American GFR (CKD) 15 (>60 ml/min/1.73 sqM); Non-African American GFR(CKD) 13 (>60 ml/min/1.73 sqM)
--- NOTE | 2024-12-22 12:48 | XR ---
EXAMINATION TYPE: XR chest 2V DATE OF EXAM: 12/22/2024 CLINICAL INDICATION: Female, 78 years old with history of Altered mental status, TECHNIQUE: Frontal and lateral views of the chest are obtained. COMPARISON: Chest x-ray September 09, 2023 and older studies. FINDINGS: Background chronic parenchymal change bilaterally is redemonstrated. Persistent right uppe r lobe calcified nodule or benign granuloma is redemonstrated. There is no focal air space opacity, p leural effusion, or pneumothorax seen. The cardiac silhouette size remains within normal limits. T he osseous structures are intact. IMPRESSION: Chronic changes without acute cardiopulmonary process. [facility], , 12/22/2024 12:45 PM
--- NOTE | 2024-12-22 12:50 | CT ---
EXAMINATION TYPE: CT brain wo con DATE OF EXAM: 12/22/2024 COMPARISON: CT brain June 22, 2024 CLINICAL INDICATION: Female, 78 years old with history of Altered mental status, ams TECHNIQUE: CT scan of the head is performed without contrast. CT DLP: 1245.4 mGycm. Automated Exposure Control for Dose Reduction was Utilized. FINDINGS: There is no acute intracranial hemorrhage or midline shift identified. Persistent severe diffuse hydrocephalus. Persistent prominent CSF posterior aspect of the posterior fossa. No fourth ve ntricular dilatation. Bilateral aphakia redemonstrated. Partially opacified mastoid air cells bilater ally again seen. The visualized sinuses are clear. IMPRESSION: No acute intracranial hemorrhage or midline shift. There is stable severe hydrocephalus . [facility], , 12/22/2024 12:48 PM
[2024-12-22 12:55] LABS: Influenza A Not Detected (Not Detectd); Influenza B Not Detected (Not Detectd); RSV Not Detected (Not Detectd)
[2024-12-22 12:58] LABS: Sodium 161 mmol/L (137-145)
[2024-12-22 12:59] LABS: ALT 40 U/L (4-34); Blood Urea Nitrogen 110 mg/dL (7-17); Potassium 5.3 mmol/L (3.5-5.1)
[2024-12-22] MEDS ORDERED: VANCOMYCIN IV PER PHARMACY 1 EACH MISC MISCELLANE PRN (13:06)
[2024-12-22] MEDS: VANCOMYCIN 1,250 MG in SODIUM CHLORIDE 0.9% 250 ML IVPB ONE (13:47)
[2024-12-22 14:48] LABS: Platelet Count 80 10*3/uL (140-440)
[2024-12-22] MEDS: LACTATED RINGERS 1,000 ML IV ONE (14:55)
[2024-12-22] MEDS ORDERED: ONDANSETRON 4 MG/2 ML VIAL IVP PRN (15:50)
[2024-12-22] MEDS ORDERED: NALOXONE 0.4 MG/ML 1 ML VIAL IV PRN (15:50)
[2024-12-22 16:25] LABS: HCT 53.8 % (37.2-46.3); MCH 31.6 pg (27.0-32.0); MCHC 32.5 g/dL (32.0-37.0); MCV 97.3 fL (80.0-97.0); Mean Platelet Volume 13.5 fL (9.5-12.2); RBC 5.53 10*6/uL (4.10-5.20); RDW 14.6 % (11.5-14.5); WBC 28.47 10*3/uL (4.50-10.00)
[2024-12-22 16:39] LABS: ALT 34 U/L (4-34); African American GFR (CKD) 20 (>60 ml/min/1.73 sqM); Anion Gap 14 mmol/L; Calcium 9.6 mg/dL (8.4-10.2); Carbon Dioxide 18 mmol/L (22-30); Chloride 121 mmol/L (98-107); Glucose 162 mg/dL (74-99); Non-African American GFR(CKD) 17 (>60 ml/min/1.73 sqM); Sodium 153 mmol/L (137-145); Total Bilirubin 2.2 mg/dL (0.2-1.3)
[2024-12-22 16:56] LABS: HGB 17.5 g/dL (12.0-15.0)
[2024-12-22 17:13] LABS: AST 70 U/L (14-36); Alkaline Phosphatase 82 U/L (38-126); Blood Urea Nitrogen 102 mg/dL (7-17); Potassium 4.8 mmol/L (3.5-5.1); Total Protein 6.4 g/dL (6.3-8.2)
[2024-12-22] MEDS ORDERED: DEXTROSE 5%-0.45% NACL 1,000 ML IV SCH (17:15)
[2024-12-22 17:32] LABS: Large Platelets Present; Lymphocytes # (M) 0.57 k/uL (1.0-4.8); Monocytes # (M) 0.85 k/uL (0-1.0); Neutrophils # (M) 27.05 k/uL (1.3-7.7); Neutrophils % (M) 95 %; Nucleated Red Blood Cells 0 /100 WBC (0-0); Total Cells Counted 100
[2024-12-22 17:33] LABS: Platelet Count 40 10*3/uL (140-440)
--- NOTE | 2024-12-22 17:55 | P.HPIM ---
History of Present Illness H&P Date: 12/22/24 History of present illness; 78-year-old female with PMH of dementia, anxiety/depression, seizure disorder presents to the emergency department for further evaluation of altered mental status. She lives in an [facility] home and at baseline is A&O x 1. She was reportedly found to be increasingly altered and essentially only responds to painful stimuli. She was found to be hypotensive with a BP of 70/50, and received 500 cc bolus of normal saline by EMS, who recommends improvement in her blood pressure at the time. Unsure when her last known well was. Family is currently at bedside with her, who acknowledged that she is generally limited in her ability to communicate however usually more responsive than she is currently. Labratory review: -On arrival: WBCs 26.25, hemoglobin 20.8, hematocrit 64.0, platelet 80; sodium 161, potassium 5.3, chloride 123, bicarb 14, anion gap 24, BUN 110, creatinine 3.31, lactic acid 6.1, calcium 10.7, total bilirubin 2.5, AST 67, ALT 40, alkaline phosphatase 100; troponin 0.308 -Most recently, after 4 L of LR and boluses: WBCs 28.47, hemoglobin 17.5 hematoc rit 53.8, platelet 40; sodium 153, potassium 4.8, chloride 128, bicarb 18, anion gap 14, BUN 102, creatinine 2.54, lactic acid 4.6, calcium 9.6, total bilirubin 2.2, AST 70, ALT 34, alkaline phosphatase 82; troponin 0.422 -UA: Cloudy in appearance, trace protein, trace ketones, large amount of blood, moderate leukocyte esterase -Respiratory viral panel all negative Imaging: -Chest x-ray done in the ER independently read and interpreted showed chronic changes without acute cardiopulmonary process -CT brain showed no acute intracranial hemorrhage or midline shift, stable severe hydrocephalus -EKG done in the ER showed heart rate of 112, sinus tachycardia, no ST segment elevation or depression seen, no T-wave inversions seen. Vitals: -On arrival: Temperature 103.1 F rectal, blood pressure 99/74, heart rate 113, respiratory 20, SpO2 94% on room air -Most recently: Blood pressure 122/86, heart rate 89, respiratory rate 19, SpO2 99% on room air Patient admitted to internal medicine service REVIEW OF SYSTEMS: Unable to fully assess due to her current altered mentation The rest of the 14-point review of systems is negative. Physical Exam: General: nontoxic, no distress, appears at stated age; ANO x 01, obtunded in appearance Derm: warm, dry, intact Head: atraumatic, normocephalic, symmetric Eyes: EOMI, anicteric sclera Mouth: no lip lesion, mucus membranes moist Cardiovascular: S1 S2 reg, no murmur, rubs, or gallops Lungs: CTA bilateral, no rales, no accessory muscle use Abdominal: soft, non-tender to palpataion, no appreciable organomegaly Extremities: no gross muscle atrophy, no edema, no contractures; 2+ pedal pulses bilaterally, bilateral lower extremities cold to the touch Neuro: Alert, Oriented, CNII-XII grossly intact, gait normal Psych: well appearing, appropriate affect Assessment and plan 78-year-old female with PMH of dementia, anxiety/depression, seizure disorder presents to the emergency department for further evaluation of altered mental status. #Severe sepsis, with unknown source of infection #Altered mental status possibly secondary to above -Received total of 4 L LR bolus in ED; maintenance LR at 130 cc/h discontinued -Continue with vancomycin; discontinued Rocephin and initiated her on cefepime 1 g every 24 hours -Blood cultures, urine culture ordered, currently pending -CT abd/pelvis w/o contrast ordered, currently pending -Echocardiogram ordered, currently pending -Infectious disease consulted #Prerenal YAHIR, improving after 4 L LR boluses -On arrival BUN 110, creatinine 3.31; on repeat labs after 4 L LR boluses BUN 102, creatinine 2.54 -Arias catheter in place -Continue with D5 half-normal saline at 100 cc/h #Hypernatremia, improving after 4 L LR boluses -161 on arrival, repeat labs after 4 L LR boluses 153 -LR at 130 cc/h discontinued -Continue with D5W half-normal saline at 100 cc/h -Monitor sodium closely, rechecks every 4 hours (total of 2 rechecks) -Should not correct sodium > 10 over the course of 24 hours, monitor rechecks and if necessary consider discontinuation of fluids #Hyperkalemia, improving after 4 L LR boluses #High anion gap metabolic acidosis, improving after 4 L LR boluses #Lactic acidosis, improving after 4 L LR boluses #Transaminitis, improving after 4 L LR boluses -Continue with D5W half-normal saline at 100 cc/h -Continue monitor CMP closely #Thrombocytopenia -On arrival platelets were shown to be 80, on repeat labs after 4 L LR boluses platelet 240 -Currently holding DVT prophylaxis secondary to this -Vitamin B12, folate, fibrinogen ordered and currently pending -Continue to monitor CBC, with pathologist review of CBC smear on 12/23/24 #Hypercalcemia, improving after 4 L LR boluses -Corrected calcium on repeat lab draw 10.4 -Continue monitor CMP #Elevated troponin #NSTEMI type II secondary to above -Trend troponins: 0.308 -> 0.422 -Cardiac monitoring -Echocardiogram ordered, currently pending -Cardiology consulted GI prophylaxis: DVT prophylaxis: SCDS 2/2 thrombocytopenia The patient is admitted with an anticipated more than than 2 midnight stay for evaluation of altered mental status and sepsis. CODE STATUS: Full code Discussed with: Patient Anticipated discharge place: Pending clinical course Dictation was produced using [employer] dictation software. please excuse any grammatical, word or spelling errors. Yves Freed MD PGY-1 IM I saw and evaluated the patient during the chery and critical portions of this encounter, and discussed the case in detail with the resident author of this note, I agree with the Assessment and Plan, and my changes, if any, are highlighted in blue. 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 History of Any Multi-Drug Resistant Organisms: None Reported Past Surgical History: No Surgical Hx Reported Additional Past Surgical History / Comment(s): deviated septum, cervical biopsy, epidural injections Past Anesthesia/Blood Transfusion Reactions: No Reported Reaction Past Psychological History: No Psychological Hx Reported Smoking Status: Never smoker Past Alcohol Use History: None Reported Past Drug Use History: None Reported - Past Family History Mother Family Medical History: No Reported History Medications and Allergies Home Medications Medication Instructions Recorded Confirmed Type Cholecalciferol [Vitamin D3 (25 50 mcg PO DAILY 04/29/22 12/22/24 History Mcg = 1000 Iu)] Donepezil HCl [Aricept] 10 mg PO DAILY 04/29/22 12/22/24 History Budesonide 0.5 mg INHALATION RT-BID 12/22/24 12/22/24 History Cholestyramine (with Sugar) 4 gm PO DAILY 12/22/24 12/22/24 History [Cholestyramine Packet] FLUoxetine HCL [PROzac] 20 mg PO DAILY 12/22/24 12/22/24 History Lactobacillus Acidophilus 1 cap PO DAILY 12/22/24 12/22/24 History [Acidophilus] Magnesium Hydroxide [Milk of 2,400 mg PO Q2D PRN 12/22/24 12/22/24 History Magnesia] Metoprolol Tartrate [Lopressor] 12.5 mg PO DAILY 12/22/24 12/22/24 History Pimecrolimus 1 applic TOPICAL DAILY 12/22/24 12/22/24 History haloperidoL [Haldol] 1 mg PO DAILY 12/22/24 12/22/24 History levETIRAcetam [Keppra] 500 mg PO BID 12/22/24 12/22/24 History Allergies Allergy/AdvReac Type Severity Reaction Status Date / Time aspirin AdvReac Unknown Verified 12/22/24 12:00 Physical Exam Vitals: Vital Signs Temp Pulse Resp BP Pulse Ox 12/22/24 16:04 89 19 122/86 12/22/24 15:48 89 18 109/82 99 12/22/24 15:00 90 21 98/67 96 12/22/24 14:18 99 F 12/22/24 14:08 85 20 92/61 96 12/22/24 13:07 105 H 30 H 91/69 96 12/22/24 12:41 106 H 20 86/63 94 L 12/22/24 12:29 80/64 12/22/24 12:05 103.1 F H 12/22/24 11:40 98.6 F 113 H 20 99/74 94 L Intake and Output 12/22/24 12/22/24 12/22/24 06:59 14:59 22:59 Other: Weight 72.575 kg Results CBC & Chem 7: 12/22/24 16:18 12/22/24 16:18 Labs: Abnormal Lab Results - Last 24 Hours (Table) 12/22/24 12/22/24 12/22/24 Range/Units 11:58 11:58 11:58 WBC 26.25 H (4.50-10.00) 10*3/uL RBC 6.62 H (4.10-5.20) 10*6/uL Hgb 20.8 H* (12.0-15.0) g/dL Hct 64.0 H* (37.2-46.3) % Plt Count 80 L (140-440) 10*3/uL MPV 13.3 H (9.5-12.2) fL Immature Gran # 0.27 H (0.00-0.04) 10*3/uL Neutrophils # 23.25 H (1.80-7.70) 10*3/uL Lymphocytes # 0.71 L (0.90-5.00) 10*3/uL Monocytes # 1.95 H (0.20-1.00) 10*3/uL Eosinophils # 0.00 L (0.04-0.35) 10*3/uL PT 28.3 H (10.0-12.5) sec INR 2.8 H (<1.2) Sodium (137-145) mmol/L Potassium (3.5-5.1) mmol/L Chloride (98-107) mmol/L Carbon Dioxide (22-30) mmol/L BUN (7-17) mg/dL Creatinine (0.52-1.04) mg/dL Glucose (74-99) mg/dL Plasma Lactic Acid Jules (0.7-2.0) mmol/L Calcium (8.4-10.2) mg/dL Total Bilirubin (0.2-1.3) mg/dL AST (14-36) U/L ALT (4-34) U/L Troponin I (0.000-0.034) ng/mL Urine Appearance Cloudy H (Clear) Urine Protein Trace H (Negative) Urine Ketones Trace H (Negative) Urine Blood Large H (Negative) Ur Leukocyte Esterase Moderate H (Negative) Urine RBC 53 H (0-5) /hpf Urine WBC 30 H (0-5) /hpf Ur Squamous Epith Cells 5 H (0-4) /hpf Urine Bacteria Many H (None) /hpf Hyaline Casts 91 H (0-2) /lpf Urine Mucus Many H (None) /hpf 12/22/24 12/22/24 12/22/24 Range/Units 11:58 11:58 12:07 WBC (4.50-10.00) 10*3/uL RBC (4.10-5.20) 10*6/uL Hgb (12.0-15.0) g/dL Hct (37.2-46.3) % Plt Count (140-440) 10*3/uL MPV (9.5-12.2) fL Immature Gran # (0.00-0.04) 10*3/uL Neutrophils # (1.80-7.70) 10*3/uL Lymphocytes # (0.90-5.00) 10*3/uL Monocytes # (0.20-1.00) 10*3/uL Eosinophils # (0.04-0.35) 10*3/uL PT (10.0-12.5) sec INR (<1.2) Sodium 161 H* (137-145) mmol/L Potassium 5.3 H (3.5-5.1) mmol/L Chloride 123 H (98-107) mmol/L Carbon Dioxide 14 L (22-30) mmol/L BUN 110 H* (7-17) mg/dL Creatinine 3.31 H (0.52-1.04) mg/dL Glucose 168 H (74-99) mg/dL Plasma Lactic Acid Jules 6.1 H* (0.7-2.0) mmol/L Calcium 10.7 H (8.4-10.2) mg/dL Total Bilirubin 2.5 H (0.2-1.3) mg/dL AST 67 H (14-36) U/L ALT 40 H (4-34) U/L Troponin I 0.308 H* (0.000-0.034) ng/mL Urine Appearance (Clear) Urine Protein (Negative) Urine Ketones (Negative) Urine Blood (Negative) Ur Leukocyte Esterase (Negative) Urine RBC (0-5) /hpf Urine WBC (0-5) /hpf Ur Squamous Epith Cells (0-4) /hpf Urine Bacteria (None) /hpf Hyaline Casts (0-2) /lpf Urine Mucus (None) /hpf
[2024-12-22] MEDS ORDERED: ACETAMINOPHEN IV (For NPO) 1,000 MG in EMPTY BAG 1 BAG IVPB PRN (18:00)
[2024-12-22] MEDS: CEFEPIME 1 GM in SODIUM CHLORIDE 0.9% 50 ML IVPB SCH (18:33)
[2024-12-22] MEDS: DEXTROSE 5%-0.45% NACL 1,000 ML IV SCH (18:37)
--- NOTE | 2024-12-22 19:27 | CT ---
EXAMINATION TYPE: CT abdomen pelvis wo con DATE OF EXAM: 12/22/2024 6:30 PM COMPARISON: 07/03/2023, 05/11/2013. CLINICAL INDICATION: Female, 78 years old with history of sepsis; Sepsis, unable to raise arms above head. TECHNIQUE: Axial CT abdomen pelvis wo con;Sagittal and coronal reformats were created on a separate workstation. Contrast used: mL of , (none if empty) Oral contrast used: without Oral Contrast (none if empty) CT DLP: 703.9 mGycm, Automated exposure control for dose reduction was used. FINDINGS: LOWER CHEST: Groundglass opacities in the right lower lung posteriorly partially visualized. The hear t is mildly enlarged for size. Mitral valve annular cusp patient's. Aortic valve calcifications. Paulina re coronary artery cusp patient's. ABDOMEN LIVER: Unremarkable GALLBLADDER AND BILE DUCTS: Unremarkable. PANCREAS: Unremarkable. SPLEEN: Unremarkable. ADRENAL GLANDS: Fat-containing lesion of the right adrenal gland measuring up to 25 mm similar to isis or imaging dating back to 05/11/2013 past representing myelolipoma which is slightly increased in size , previously 17 mm. No left adrenal nodules. KIDNEYS AND URETERS: No evidence of hydronephrosis or obstructing renal calculus. The ureters are unr emarkable. Indeterminate right renal inferior pole lesion measuring up to 46 Hounsfield units prev iously 30 Hounsfield units on 07/03/2022 postcontrast exam. And 22 mm. PELVIS BLADDER: Nondistended with Arias catheter in place. REPRODUCTIVE: Pessary ring in the vagina. ABDOMEN & PELVIS STOMACH AND BOWEL: No evidence of bowel obstruction. Scattered colonic diverticula present. PERITONEUM/RETROPERITONEUM: No evidence of pneumoperitoneum or free fluid. VASCULATURE: Mild atherosclerotic calcifications are present throughout the abdominal aorta and its b ranches. No evidence of aortic aneurysm. MUSCULOSKELETAL: No acute osseous abnormalities. Severe disc degeneration changes are present at L4-L 5. 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 Moderate bilateral neural shen inal stenosis. LYMPH NODES: No gross evidence for lymphadenopathy. SOFT TISSUE/ABDOMINAL WALL: Unremarkable IMPRESSION: 1. Right lower lobe ground glass opacities correlate for aspiration correlate for pneumonia. 2. Indeterminate right renal inferior pole lesion measuring up to 46 Hounsfield units and 22 mm. Pre viously 30 Hounsfield units on postcontrast imaging, findings favor hemorrhagic/proteinaceous cyst. R enal mass protocol MRI recommended for complete evaluation. 3. Colonic diverticulosis.. 4. Pessary ring in the vagina. 5. Arias catheter in appropriate position. 6. Right adrenal fat-containing lesion increased in size from 2013 now measuring 25 mm previously 17 mm. 7. 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 Moderate bilateral neural fora jonh stenosis. [facility], , 12/22/2024 7:25 PM
[2024-12-22] MEDS: levETIRAcetam IV 500 MG/5 ML VIAL IVP SCH (20:56)
[2024-12-22] MEDS ORDERED: levETIRAcetam IV 500 MG in SODIUM CHLORIDE 0.9% 250 ML IVPB SCH (21:00)
[2024-12-22] MEDS ORDERED: levETIRAcetam 500 MG TAB PO SCH (21:00)
--- NOTE | 2024-12-22 22:43 | P.CONS ---
History of Present Illness - Reason for Consult Consult date: 12/22/24 Severe sepsis Requesting physician: Shaneka Torre - Chief Complaint Unresponsive x 1 day - History of Present Illness Patient is a 78-year-old female with a past medical history significant for osteoarthritis/seizure disorder memory impairment dementia who is a resident of [facility] patient had been sent to the ER concerning for mental status changes apparently the patient was noticed to be unresponsive this morning and the patient was found to be hypertensive with a blood pressure 70 systolic history provided mostly by the family at the bedside mention they saw her last week and she was doing okay and received a call from the [facility] about her condition no clear history of any nausea vomiting or any high- grade fever however the patient did have a temperature of 103.1 F in the ER patient was tachycardic as well as mildly hypertensive and hypoxic on 2 L nasal cannula oxygen she did have white count 28.47 with a left shift of BMP creati nine has been elevated with a creatinine 2.54 lactic acid of 4.6 troponin was also elevated did have a positive UA influenza RSV COVID testing has been negative patient did have a chest x-ray chronic changes without acute process patient has been started on cefepime infectious he was consulted for further management of antibiotic. Most information has been obtained from review the chart talking to family the bedside as the patient herself was unable to provide any history Review of Systems Positive points has been mentioned in HPI complete review could not be obtained because of his underlying mental status 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 History of Any Multi-Drug Resistant Organisms: None Reported Past Surgical History: No Surgical Hx Reported Additional Past Surgical History / Comment(s): deviated septum, cervical biopsy, epidural injections Past Anesthesia/Blood Transfusion Reactions: No Reported Reaction Past Psychological History: No Psychological Hx Reported Smoking Status: Never smoker Past Alcohol Use History: None Reported Past Drug Use History: None Reported - Past Family History Mother Family Medical History: No Reported History Medications and Allergies Home Medications Medication Instructions Recorded Confirmed Type Cholecalciferol [Vitamin D3 (25 50 mcg PO DAILY 04/29/22 12/22/24 History Mcg = 1000 Iu)] Donepezil HCl [Aricept] 10 mg PO DAILY 04/29/22 12/22/24 History Budesonide 0.5 mg INHALATION RT-BID 12/22/24 12/22/24 History Cholestyramine (with Sugar) 4 gm PO DAILY 12/22/24 12/22/24 History [Cholestyramine Packet] FLUoxetine HCL [PROzac] 20 mg PO DAILY 12/22/24 12/22/24 History Lactobacillus Acidophilus 1 cap PO DAILY 12/22/24 12/22/24 History [Acidophilus] Magnesium Hydroxide [Milk of 2,400 mg PO Q2D PRN 12/22/24 12/22/24 History Magnesia] Metoprolol Tartrate [Lopressor] 12.5 mg PO DAILY 12/22/24 12/22/24 History Pimecrolimus 1 applic TOPICAL DAILY 12/22/24 12/22/24 History haloperidoL [Haldol] 1 mg PO DAILY 12/22/24 12/22/24 History levETIRAcetam [Keppra] 500 mg PO BID 12/22/24 12/22/24 History Allergies Allergy/AdvReac Type Severity Reaction Status Date / Time aspirin AdvReac Unknown Verified 12/22/24 12:00 Physical Exam Vitals: Vital Signs Temp Pulse Resp BP Pulse Ox 12/22/24 16:04 89 19 122/86 12/22/24 15:48 89 18 109/82 99 12/22/24 15:00 90 21 98/67 96 12/22/24 14:18 99 F 12/22/24 14:08 85 20 92/61 96 12/22/24 13:07 105 H 30 H 91/69 96 12/22/24 12:41 106 H 20 86/63 94 L 12/22/24 12:29 80/64 12/22/24 12:05 103.1 F H 12/22/24 11:40 98.6 F 113 H 20 99/74 94 L Intake and Output 12/22/24 12/22/24 12/22/24 06:59 14:59 22:59 Other: Weight 72.575 kg GENERAL DESCRIPTION: Elderly female lying in bed, no distress. No tachypnea or accessory muscle of respiration use. HEENT: Shows Pallor , no scleral icterus. Oral mucous membrane is dry. NECK: Trachea central, no thyromegaly. LUNGS: Unlabored breathing. Decreased breath sound the base HEART: S1, S2, regular rate and rhythm. No loud murmur ABDOMEN: Soft, no tenderness , guarding or rigidity, no organomegaly EXTREMITIES: No edema of feet. SKIN: No rash, no masses palpable. NEUROLOGICAL: The patient is unresponsive orientation cannot be determined Results CBC & Chem 7: 12/22/24 16:18 12/22/24 20:26 Labs: Abnormal Lab Results - Last 24 Hours (Table) 12/22/24 12/22/24 12/22/24 Range/Units 11:58 11:58 11:58 WBC 26.25 H (4.50-10.00) 10*3/uL RBC 6.62 H (4.10-5.20) 10*6/uL Hgb 20.8 H* (12.0-15.0) g/dL Hct 64.0 H* (37.2-46.3) % Plt Count 80 L (140-440) 10*3/uL MPV 13.3 H (9.5-12.2) fL Immature Gran # 0.27 H (0.00-0.04) 10*3/uL Neutrophils # 23.25 H (1.80-7.70) 10*3/uL Lymphocytes # 0.71 L (0.90-5.00) 10*3/uL Monocytes # 1.95 H (0.20-1.00) 10*3/uL Eosinophils # 0.00 L (0.04-0.35) 10*3/uL PT 28.3 H (10.0-12.5) sec INR 2.8 H (<1.2) Sodium (137-145) mmol/L Potassium (3.5-5.1) mmol/L Chloride (98-107) mmol/L Carbon Dioxide (22-30) mmol/L BUN (7-17) mg/dL Creatinine (0.52-1.04) mg/dL Glucose (74-99) mg/dL Plasma Lactic Acid Jules (0.7-2.0) mmol/L Calcium (8.4-10.2) mg/dL Total Bilirubin (0.2-1.3) mg/dL AST (14-36) U/L ALT (4-34) U/L Troponin I (0.000-0.034) ng/mL Urine Appearance Cloudy H (Clear) Urine Protein Trace H (Negative) Urine Ketones Trace H (Negative) Urine Blood Large H (Negative) Ur Leukocyte Esterase Moderate H (Negative) Urine RBC 53 H (0-5) /hpf Urine WBC 30 H (0-5) /hpf Ur Squamous Epith Cells 5 H (0-4) /hpf Urine Bacteria Many H (None) /hpf Hyaline Casts 91 H (0-2) /lpf Urine Mucus Many H (None) /hpf 12/22/24 12/22/24 12/22/24 Range/Units 11:58 11:58 12:07 WBC (4.50-10.00) 10*3/uL RBC (4.10-5.20) 10*6/uL Hgb (12.0-15.0) g/dL Hct (37.2-46.3) % Plt Count (140-440) 10*3/uL MPV (9.5-12.2) fL Immature Gran # (0.00-0.04) 10*3/uL Neutrophils # (1.80-7.70) 10*3/uL Lymphocytes # (0.90-5.00) 10*3/uL Monocytes # (0.20-1.00) 10*3/uL Eosinophils # (0.04-0.35) 10*3/uL PT (10.0-12.5) sec INR (<1.2) Sodium 161 H* (137-145) mmol/L Potassium 5.3 H (3.5-5.1) mmol/L Chloride 123 H (98-107) mmol/L Carbon Dioxide 14 L (22-30) mmol/L BUN 110 H* (7-17) mg/dL Creatinine 3.31 H (0.52-1.04) mg/dL Glucose 168 H (74-99) mg/dL Plasma Lactic Acid Jules 6.1 H* (0.7-2.0) mmol/L Calcium 10.7 H (8.4-10.2) mg/dL Total Bilirubin 2.5 H (0.2-1.3) mg/dL AST 67 H (14-36) U/L ALT 40 H (4-34) U/L Troponin I 0.308 H* (0.000-0.034) ng/mL Urine Appearance (Clear) Urine Protein (Negative) Urine Ketones (Negative) Urine Blood (Negative) Ur Leukocyte Esterase (Negative) Urine RBC (0-5) /hpf Urine WBC (0-5) /hpf Ur Squamous Epith Cells (0-4) /hpf Urine Bacteria (None) /hpf Hyaline Casts (0-2) /lpf Urine Mucus (None) /hpf Assessment and Plan (1) Leukocytosis Current Visit: Yes Status: Acute Code(s): D72.829 - ELEVATED WHITE BLOOD CELL COUNT, UNSPECIFIED SNOMED Code(s): 425589608 (2) Elevated serum creatinine Current Visit: Yes Status: Acute Code(s): R79.89 - OTHER SPECIFIED ABNORMAL FINDINGS OF BLOOD CHEMISTRY SNOMED Code(s): 992512593 (3) Severe sepsis Current Visit: Yes Status: Acute Code(s): A41.9 - SEPSIS, UNSPECIFIED ORGANISM; R65.20 - SEVERE SEPSIS WITHOUT SEPTIC SHOCK SNOMED Code(s): 56494559 (4) UTI (urinary tract infection) Current Visit: Yes Status: Acute Code(s): N39.0 - URINARY TRACT INFECTION, SITE NOT SPECIFIED SNOMED Code(s): 93585664 Plan: 1patient presented to hospital with unresponsiveness in this patient who did have a fever tachycardia elevated white count elevated lactic acid meeting criteria for SIRS/sepsis source is UTI likely from enteric gram-negative pathogen as currently no other obvious focus of infection on clinical lamination as well as initial investigation 2await CT of abdominal pelvis completed to rule out intra-abdominal pathology admission evidence of any hydronephrosis giving a might have elevated creatinine 3patient reportedly treated with cefepime to provide coverage for resistant gram-negative while waiting for the culture to finalize Prognosis guarded Family bedside question answered We will follow on clinical condition and cultures to further adjust medication if needed Thank you for this consultation we will follow the patient along with you Dictation was produced using [employer] dictation software. please excuse any grammatical, word or spelling errors. Time with Patient: Greater than 30
[2024-12-23] MEDS: SODIUM CHLORIDE 0.9% 1,000 ML IV SCH (00:03)
--- NOTE | 2024-12-23 07:38 | XR ---
EXAMINATION TYPE: XR chest 1V portable DATE OF EXAM: 12/23/2024 7:05 AM COMPARISON: 12/22/2024 CLINICAL INDICATION: Female, 78 years old with history of SOB, TECHNIQUE: XR chest 1V portable view(s) obtained. FINDINGS: The heart size is normal. The pulmonary vasculature is normal. There is some streak opacities at the left base with mild increased lung markings in the right upper lobe. Findings are worsening from comparison. Correlate for atelectasis. Pneumonia could be considere d. IMPRESSION: 1. Mild increased lung markings. Correlate for atelectasis or pneumonia. Follow-up recommended [facility], , 12/23/2024 7:36 AM
[2024-12-23] MEDS: FLUoxetine HCL 20 MG CAP PO SCH (08:24)
[2024-12-23] MEDS: DONEPEZIL 10 MG TAB PO SCH (08:24)
[2024-12-23] MEDS: CHOLESTYRAMINE (WITH SUGAR) 4 GM PACKET PO SCH (08:25)
[2024-12-23] MEDS: METOPROLOL TARTRATE 12.5 MG TAB PO SCH (08:25)
[2024-12-23] MEDS: haloperidoL 1 MG TAB PO SCH (08:25)
[2024-12-23] MEDS ORDERED: cefTRIAXone 2 GM in DEXTROSE 5% IN WATER 50 ML IVPB SCH (09:00)
--- NOTE | 2024-12-23 09:18 | P.CRDCN ---
History of Present Illness Consult date: 12/23/24 Reason for Consult (text): Elevated troponins History of present illness: This is a 78-year-old with past medical history of seizure disorder, dementia, hydrocephalus and resides at [facility]. Patient's baseline orientation is oriented x 1. Patient apparently was unresponsive yesterday morning and also found to be hypotensive with systolic blood pressure of 70. She had a fever of 103, tachycardic and hypoxic and placed on oxygen. Patient opens eyes slightly to verbal stimuli. Information has been obtained from her chart and physical exam. Blood pressure 105/89, heart rate 96, respiratory rate 25, pulse ox 96% on 2 L nasal cannula. Patient is seen today in the emergency center waiting for a bed on the cardiac stepdown unit. Patient is status post IV antibiotics, IV fluid boluses. -EKG: Sinus rhythm 112 bpm, right axis deviation, right bundle branch block, T wave changes. -Chest x-ray: Chronic changes without acute cardiopulmonary process. -CT brain: No acute intracranial hemorrhage or midline shift. Stable severe hydrocephalus. -CT of the abdomen pelvis without contrast revealed right lower lobe groundglass opacities correlate for aspiration. Right renal inferior pole lesion. Colonic diverticulosis. Arias catheter. Adrenal fat-containing lesion. Spondylosis. -Laboratory studies: Troponins 0.308, 0.422, 0.384. WBC 28, hemoglobin 17, platelet count 40. Initial sodium 161 and repeat 151, initial potassium 5.3, i nitial BUN 110 now 102, creatinine 3.31 and repeat 2.53. Lactic acidosis 6.1 with repeat 1.9. AST 67, ALT 40. Cepheid viral panel not detected. Urinalysis positive for leukoesterase, WBCs, many bacteria. -Home cardiac medications: Metoprolol tartrate 12.5 mg daily -Echocardiogram performed 04/30/2022 revealed EF 50 to 55%. Review Of Systems: At the time of my exam: CONSTITUTIONAL: Denies fever or chills. HEENT: Denies blurred vision, vision changes, or eye pain. Denies hemoptysis CARDIOVASCULAR: Denies chest pain. Denies orthopnea. Denies PND. Denies palpitations RESPIRATORY: Denies shortness of breath. GASTROINTESTINAL: Denies abdominal pain. Denies nausea or vomiting. HEMATOLOGIC: Denies bleeding disorders. GENITOURINARY: Denies any blood in urine. SKIN: Denies puritis. Denies rash. Physical examination: Gen: This is 78-year-old female in no acute respiratory distress. VS: reviewed HEENT: Head is atraumatic, normocephalic. Pupils equal, round. Sclerae is anicteric. NECK: Supple. No JVD. No carotid bruit. LUNGS: Bilateral rhonchi. No intercostal retractions. HEART: Regular rate and rhythm. Systolic murmur. ABDOMEN: Soft No tenderness. EXTREMITIES: Trace lower extremity edema. No calf tenderness. NEUROLOGICAL: Patient is awake. Assessment: Elevated troponins with flat pattern secondary to sepsis and renal failure Sepsis with hypotension and leukocytosis Thrombocytopenia Polycythemia Hyponatremia Acute kidney injury Urinary tract infection Hyperkalemia Metabolic acidosis Seizure disorder Dementia Hydrocephalus Plan: Resume patient's home metoprolol at 12.5 mg and increase frequency to twice daily Obtain 2-D echocardiogram and Doppler study to assess cardiac structure and function No indication for any further cardiac workup Further recommendations to follow based upon clinical course Thank you kindly for this consultation. Nurse practitioner note has been reviewed, I agree with documented findings and plan of care. Patient was seen and examined. 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 History of Any Multi-Drug Resistant Organisms: None Reported Past Surgical History: No Surgical Hx Reported Additional Past Surgical History / Comment(s): deviated septum, cervical biopsy, epidural injections Past Anesthesia/Blood Transfusion Reactions: No Reported Reaction Past Psychological History: No Psychological Hx Reported Smoking Status: Never smoker Past Alcohol Use History: None Reported Past Drug Use History: None Reported - Past Family History Mother Family Medical History: No Reported History Medications and Allergies Home Medications Medication Instructions Recorded Confirmed Type Cholecalciferol [Vitamin D3 (25 50 mcg PO DAILY 04/29/22 12/22/24 History Mcg = 1000 Iu)] Donepezil HCl [Aricept] 10 mg PO DAILY 04/29/22 12/22/24 History Budesonide 0.5 mg INHALATION RT-BID 12/22/24 12/22/24 History Cholestyramine (with Sugar) 4 gm PO DAILY 12/22/24 12/22/24 History [Cholestyramine Packet] FLUoxetine HCL [PROzac] 20 mg PO DAILY 12/22/24 12/22/24 History Lactobacillus Acidophilus 1 cap PO DAILY 12/22/24 12/22/24 History [Acidophilus] Magnesium Hydroxide [Milk of 2,400 mg PO Q2D PRN 12/22/24 12/22/24 History Magnesia] Metoprolol Tartrate [Lopressor] 12.5 mg PO DAILY 12/22/24 12/22/24 History Pimecrolimus 1 applic TOPICAL DAILY 12/22/24 12/22/24 History haloperidoL [Haldol] 1 mg PO DAILY 12/22/24 12/22/24 History levETIRAcetam [Keppra] 500 mg PO BID 12/22/24 12/22/24 History Allergies Allergy/AdvReac Type Severity Reaction Status Date / Time aspirin AdvReac Unknown Verified 12/22/24 12:00 Physical Exam Vitals: Vital Signs Temp Pulse Pulse Resp BP BP Pulse Ox 12/23/24 05:05 98.0 F 96 25 H 105/89 96 12/23/24 04:00 94 25 H 109/89 96 12/23/24 01:56 97.3 F L 12/23/24 01:00 84 17 91/69 97 12/22/24 23:55 96.9 F L 85 18 99/69 99 12/22/24 20:00 96.3 F L 86 18 88/66 99 12/22/24 18:40 86 20 94/66 99 12/22/24 17:16 92 30 H 118/83 96 12/22/24 16:04 89 19 122/86 12/22/24 15:48 89 18 109/82 99 12/22/24 15:00 90 21 98/67 96 12/22/24 14:18 99 F 12/22/24 14:08 85 20 92/61 96 12/22/24 13:07 105 H 30 H 91/69 96 12/22/24 12:41 106 H 20 86/63 94 L 12/22/24 12:29 80/64 12/22/24 12:05 103.1 F H 12/22/24 11:40 98.6 F 113 H 20 99/74 94 L Intake and Output 12/22/24 12/23/24 12/23/24 22:59 06:59 14:59 Output Total 275 Balance -275 Output: Urine 275 Other: Voiding Method External Catheter External Catheter Results 12/22/24 16:18 12/22/24 20:26 Cardiac Enzymes 12/22/24 12/22/24 12/22/24 Range/Units 11:58 12:07 16:18 AST 67 H 70 H (14-36) U/L Troponin I 0.308 H* (0.000-0.034) ng/mL 12/22/24 12/22/24 Range/Units 16:18 18:44 AST (14-36) U/L Troponin I 0.422 H* 0.384 H* (0.000-0.034) ng/mL Coagulation 12/22/24 Range/Units 11:58 PT 28.3 H (10.0-12.5) sec APTT 26.2 (22.0-30.0) sec CBC 12/22/24 12/22/24 Range/Units 11:58 16:18 WBC 26.25 H 28.47 H (4.50-10.00) 10*3/uL RBC 6.62 H 5.53 H (4.10-5.20) 10*6/uL Hgb 20.8 H* 17.5 H D (12.0-15.0) g/dL Hct 64.0 H* 53.8 H (37.2-46.3) % Plt Count 80 L 40 L* (140-440) 10*3/uL Comprehensive Metabolic Panel 12/22/24 12/22/24 12/22/24 Range/Units 11:58 16:18 18:44 Sodium 161 H* 153 H 153 H (137-145) mmol/L Potassium 5.3 H 4.8 (3.5-5.1) mmol/L Chloride 123 H 121 H (98-107) mmol/L Carbon Dioxide 14 L 18 L (22-30) mmol/L BUN 110 H* 102 H* (7-17) mg/dL Creatinine 3.31 H 2.54 H (0.52-1.04) mg/dL Glucose 168 H 162 H (74-99) mg/dL Calcium 10.7 H 9.6 (8.4-10.2) mg/dL AST 67 H 70 H (14-36) U/L ALT 40 H 34 (4-34) U/L Alkaline Phosphatase 100 82 (38-126) U/L Total Protein 8.1 6.4 (6.3-8.2) g/dL Albumin 4.1 3.0 L (3.5-5.0) g/dL 12/22/24 Range/Units 20:26 Sodium 151 H (137-145) mmol/L Potassium (3.5-5.1) mmol/L Chloride (98-107) mmol/L Carbon Dioxide (22-30) mmol/L BUN (7-17) mg/dL Creatinine (0.52-1.04) mg/dL Glucose (74-99) mg/dL Calcium (8.4-10.2) mg/dL AST (14-36) U/L ALT (4-34) U/L Alkaline Phosphatase (38-126) U/L Total Protein (6.3-8.2) g/dL Albumin (3.5-5.0) g/dL Current Medications Generic Name Dose Route Start Last Admin Trade Name Freq PRN Reason Stop Dose Admin Cholestyramine Resin 4 gm 12/23/24 10:00 Cholestyramine (With Sugar) 4 Gm Packet PO DAILY@1000 ERNA Donepezil HCl 10 mg 12/23/24 09:00 Donepezil 10 Mg Tab PO DAILY ERNA Fluoxetine HCl 20 mg 12/23/24 09:00 Fluoxetine Hcl 20 Mg Cap PO DAILY ERNA Haloperidol 1 mg 12/23/24 09:00 Haloperidol 1 Mg Tab PO DAILY ERNA Vancomycin HCl 1,250 mg/ 250 mls @ 125 mls/hr 12/23/24 08:00 Sodium Chloride IVPB 12/23/24 09:59 ONCE ONE Acetaminophen 1,000 mg/ IV 100 mls @ 400 mls/hr 12/22/24 18:00 Solution IVPB 12/23/24 17:59 Q6H PRN Fever Cefepime HCl 1 gm/ Sodium 50 mls @ 12.5 mls/hr 12/22/24 18:00 12/23/24 05:46 Chloride IVPB 12.5 mls/hr Q12H ERNA Administration Protocol Levetiracetam 500 mg 12/22/24 21:00 12/22/24 20:56 Levetiracetam Iv 500 Mg/5 Ml Vial IVP 500 mg BID ERNA Administration Miscellaneous Information 1 each 12/22/24 13:06 Vancomycin Iv Per Pharmacy 1 Each Misc MISCELLANE DIRECTED PRN Per Protocol Protocol Naloxone HCl 0.2 mg 12/22/24 15:50 Naloxone 0.4 Mg/Ml 1 Ml Vial IV Q2M PRN Opioid Reversal Ondansetron HCl 4 mg 12/22/24 15:50 Ondansetron 4 Mg/2 Ml Vial IVP Q8HR PRN Nausea And Vomiting Intake and Output 12/22/24 12/23/24 12/23/24 22:59 06:59 14:59 Output Total 275 Balance -275 Output: Urine 275 Other: Voiding Method External Catheter External Catheter 12/22/24 16:18 12/22/24 20:26
[2024-12-23] MEDS: VANCOMYCIN 1,250 MG in SODIUM CHLORIDE 0.9% 250 ML IVPB ONE (09:24)
[2024-12-23 09:40] LABS: HGB 17.9 g/dL (12.0-15.0); MCH 31.2 pg (27.0-32.0); MCHC 32.3 g/dL (32.0-37.0); MCV 96.9 fL (80.0-97.0); Mean Platelet Volume 11.5 fL (9.5-12.2); RBC 5.73 10*6/uL (4.10-5.20); RDW 14.6 % (11.5-14.5); WBC 38.88 10*3/uL (4.50-10.00)
[2024-12-23 10:02] LABS: ALT 34 U/L (4-34); AST 39 U/L (14-36); African American GFR (CKD) 23 (>60 ml/min/1.73 sqM); Alkaline Phosphatase 89 U/L (38-126); Anion Gap 10 mmol/L; Calcium 9.6 mg/dL (8.4-10.2); Carbon Dioxide 22 mmol/L (22-30); Chloride 123 mmol/L (98-107); Glucose 138 mg/dL (74-99); Magnesium 2.5 mg/dL (1.6-2.3); Non-African American GFR(CKD) 20 (>60 ml/min/1.73 sqM); Phosphorus 4.4 mg/dL (2.5-4.5); Potassium 4.4 mmol/L (3.5-5.1); Sodium 155 mmol/L (137-145); Total Bilirubin 2.2 mg/dL (0.2-1.3); Total Protein 6.4 g/dL (6.3-8.2)
[2024-12-23 10:07] LABS: Blood Urea Nitrogen 109 mg/dL (7-17)
[2024-12-23 10:40] LABS: HCT 55.5 % (37.2-46.3)
[2024-12-23 10:41] LABS: Platelet Count 35 10*3/uL (140-440)
--- NOTE | 2024-12-23 10:57 | P.NPCON ---
History of Present Illness - Reason for Consult acute renal failure, hypernatremia - History of Present Illness Reason for consultation: Acute kidney injury and hypernatremia History of present illness: Patient is a 78-year-old female seen in renal consultation for acute kidney injury and hypernatremia. Creatinine on admission was 3.31 and is improved to 2.3 today. Creatinine in June 2024 was 0.7. Sodium was elevated at 161 for which patient received 2 L of lactated Ringer's in the ER and was then started on half-normal saline. She was switched back to normal saline as sodium level had come down to 151. It is up to 155 this morning. Patient is resting in bed. She is a poor historian. Hemodynamically stable. I do not see any NSAIDs on her home medication list. Patient was brought to the hospital due to altered mental status. Patient lives in an [facility] home and is alert and oriented x 1 at baseline. Patient was found to be less responsive and was subsequently sent to the hospital. Blood pressure on admission was as low as 70/50. Chest x-ray showed no acute changes. Brain CT was negative for any acute changes. CT of the abdomen and pelvis showed no evidence of hydronephrosis. Vital signs are stable. General: No acute distress. HEENT: Head exam is unremarkable. On nasal cannula. LUNGS: Scattered rhonchi. HEART: Rate and Rhythm are regular. ABDOMEN: Nontender. EXTREMITITES: No edema. 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 History of Any Multi-Drug Resistant Organisms: None Reported Past Surgical History: No Surgical Hx Reported Additional Past Surgical History / Comment(s): deviated septum, cervical biopsy, epidural injections Past Anesthesia/Blood Transfusion Reactions: No Reported Reaction Past Psychological History: No Psychological Hx Reported Smoking Status: Never smoker Past Alcohol Use History: None Reported Past Drug Use History: None Reported - Past Family History Mother Family Medical History: No Reported History Medications and Allergies Home Medications Medication Instructions Recorded Confirmed Type Cholecalciferol [Vitamin D3 (25 50 mcg PO DAILY 04/29/22 12/22/24 History Mcg = 1000 Iu)] Donepezil HCl [Aricept] 10 mg PO DAILY 04/29/22 12/22/24 History Budesonide 0.5 mg INHALATION RT-BID 12/22/24 12/22/24 History Cholestyramine (with Sugar) 4 gm PO DAILY 12/22/24 12/22/24 History [Cholestyramine Packet] FLUoxetine HCL [PROzac] 20 mg PO DAILY 12/22/24 12/22/24 History Lactobacillus Acidophilus 1 cap PO DAILY 12/22/24 12/22/24 History [Acidophilus] Magnesium Hydroxide [Milk of 2,400 mg PO Q2D PRN 12/22/24 12/22/24 History Magnesia] Metoprolol Tartrate [Lopressor] 12.5 mg PO DAILY 12/22/24 12/22/24 History Pimecrolimus 1 applic TOPICAL DAILY 12/22/24 12/22/24 History haloperidoL [Haldol] 1 mg PO DAILY 12/22/24 12/22/24 History levETIRAcetam [Keppra] 500 mg PO BID 12/22/24 12/22/24 History Allergies Allergy/AdvReac Type Severity Reaction Status Date / Time aspirin AdvReac Unknown Verified 12/22/24 12:00 Physical Exam Vitals: Vital Signs Temp Pulse Pulse Resp BP BP Pulse Ox 12/23/24 08:31 97.9 F 101 H 30 H 99/73 96 12/23/24 05:05 98.0 F 96 25 H 105/89 96 12/23/24 04:00 94 25 H 109/89 96 12/23/24 01:56 97.3 F L 12/23/24 01:00 84 17 91/69 97 12/22/24 23:55 96.9 F L 85 18 99/69 99 12/22/24 20:00 96.3 F L 86 18 88/66 99 12/22/24 18:40 86 20 94/66 99 12/22/24 17:16 92 30 H 118/83 96 12/22/24 16:04 89 19 122/86 12/22/24 15:48 89 18 109/82 99 12/22/24 15:00 90 21 98/67 96 12/22/24 14:18 99 F 12/22/24 14:08 85 20 92/61 96 12/22/24 13:07 105 H 30 H 91/69 96 12/22/24 12:41 106 H 20 86/63 94 L 12/22/24 12:29 80/64 12/22/24 12:05 103.1 F H 12/22/24 11:40 98.6 F 113 H 20 99/74 94 L Intake and Output 12/22/24 12/23/24 12/23/24 22:59 06:59 14:59 Output Total 275 Balance -275 Output: Urine 275 Other: Voiding Method External Catheter External Catheter Results - Lab Results Most recent lab results Calcium 9.6 mg/dL (8.4-10.2) 12/23/24 09:19 Phosphorus 4.4 mg/dL (2.5-4.5) 12/23/24 09:19 Magnesium 2.5 mg/dL (1.6-2.3) H 12/23/24 09:19 12/23/24 09:19 12/23/24 09:19 Assessment and Plan Plan: Assessment: 1. Acute kidney injury secondary to ATN secondary to hypotension/severe sepsis. Creatinine 3.3 on admission and is 2.3 today. Baseline creatinine 0.7 from June 2024. No hydronephrosis noted on CT. 2. Right renal lesion. Patient will need to see urology down the road. 3. Hypernatremia from lack of oral water intake. 4. Metabolic acidosis secondary to acute kidney injury. Improved. 5. UTI on antibiotics. ID following. Plan: Change IV fluids to half-normal saline to be run at 125 cc an hour. Repeat sodium level this evening. Avoid nephrotoxins. Follow-up echocardiogram. Thank you for the consultation. I will continue to follow the patient with you during her hospital stay.
--- NOTE | 2024-12-23 12:26 | P.PN ---
Subjective Progress Note Date: 12/23/24 78-year-old female with PMH of dementia, anxiety/depression, seizure disorder presents to the emergency department for further evaluation of altered mental status. She lives in an AFC home and at baseline is A&O x 1. She was reportedly found to be increasingly altered and essentially only responds to antonio nful stimuli. She was found to be hypotensive with a BP of 70/50, and received 500 cc bolus of normal saline by EMS, who recommends improvement in her blood pressure at the time. Unsure when her last known well was. Family is currently at bedside with her, who acknowledged that she is generally limited in her ability to communicate however usually more responsive than she is currently. 12/23 - She is seen and examined at bedside this morning, remaining in the ED. Overnight she had no new acute concerns or difficulties. Her nurse overnight did note that she felt as though she was not producing a ton of urine overnight and noticed an increased respiratory rate with some noted increase in work of breathing while her O2 saturation has remained in the mid 90%'s, but an X-ray was ordered this morning. CT abd/pelvis from yesterday was read and reviewed. REVIEW OF SYSTEMS: Pertinent positives and negatives noted in HPI. Physical Exam: General: nontoxic, no distress, appears at stated age; ANO x 01, somewhat obtunded in appearance; Arias catheter in place Derm: warm, dry, intact Head: atraumatic, normocephalic, symmetric Eyes: EOMI, anicteric sclera Mouth: no lip lesion, mucus membranes moist Cardiovascular: S1 S2 reg, no murmur, rubs, or gallops Lungs: CTA bilateral, no rales, no accessory muscle use Abdominal: soft, non-tender to palpataion, no appreciable organomegaly Extremities: no gross muscle atrophy, no edema, no contractures; 2+ pedal pulses bilaterally, bilateral lower extremities cold to the touch Neuro: Alert, Oriented, CNII-XII grossly intact, gait normal Psych: well appearing, appropriate affect Data Received Today: Labs: WBCs 38.8, hemoglobin 17.9, hematocrit 55.5, platelet currently pending at time of dictation; sodium 155, potassium 4.4, chloride 123, bicarb 22, anion gap 10, BUN 109, creatinine 2.31, calcium 9.6, phosphorus 4.4, magnesium 2.5, total bilirubin 2.2, AST 39, ALT 34, alkaline phosphatase 89 Imagining: - CT abdomen/pelvis showed right lower lobe groundglass opacities to be correlated for aspiration vs pneumonia; intermediate right renal inferior pole lesion measuring up to 46 Hounsfield units and 22 mm, previously 30 Hounsfield units on postcontrast imaging, findings favor hemorrhagic/proteinaceous cyst, renal mass protocol MRI recommended for complete evaluation; colonic diver ticulosis; right adrenal fat-containing lesion increase in size from 2013 now measuring 25 mm as previously 17 mm; 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 #Severe sepsis, with unknown source of infection possibly aspiration pneumonia #Acute septic/metabolic encephalopathy -Received total of 4 L LR bolus in ED; maintenance LR at 130 cc/h discontinued -Continue with vancomycin; discontinued Rocephin and initiated her on cefepime 1 g every 24 hours -Blood cultures, urine culture ordered, currently pending -MRSA/MSSA screening ordered, currently pending -CT abd/pelvis w/o contrast read and reviewed -Echocardiogram ordered, currently pending -Discussed with infectious disease, consider switching from cefepime to Zosyn #YAHIR secondary to ATN, likely secondary to hypotension/sepsis #Hyperkalemia, likely secondary to above, resolved #High anion gap metabolic acidosis, likely secondary to above, resolved #Lactic acidosis, Resolved #Transaminitis, likely secondary to above, improving -This morning BUN 109, creatinine 2.31 -Arias catheter in place -Continue with half-normal saline at 130 cc/h as per nephrology recommendation -Continue monitor CMP closely #Hypernatremia, likely secondary to poor oral intake -Sodium 155 this morning -Continue with half-normal saline at 130 cc/h as per nephrology recommendation -Continue to monitor sodium closely with BMP #Thrombocytopenia, possibly ITP secondary to infectious cause -On arrival platelets were shown to be 80, on repeat labs after 4 L LR boluses platelet 240 -Currently holding DVT prophylaxis secondary to this -Vitamin B12, folate ordered and currently pending -EBV, hepatitis panel, HIV panel all ordered and currently pending -Fibrinogen shown to be low at <70 -Continue to monitor CBC, with pathologist review of CBC smear on 12/23/24 currently pending at time of dictation -Consider hematology/oncology consultation and possible use of steroids if the thrombocytopenia persists or worsens #Hypercalcemia -Corrected calcium on repeat lab draw 10.4 -Continue monitor CMP #Elevated troponin #NSTEMI type II secondary to above -Trend troponins: 0.308 -> 0.422 -> 0.384 -Cardiac monitoring -Echocardiogram ordered, currently pending -Cardiology following DVT prophylaxis: SCDS 2/2 thrombocytopenia Code status: Full code F: Half-normal saline @ 75 cc/h E: Replete as needed N: NPO Anticipated discharge place: Pending clinical course Anticipated discharge time: Pending clinical course Dictation was produced using [employer] dictation software. please excuse any grammatical, word or spelling errors. Yves Freed MD PGY-1 IM I have seen and evaluated the patient today. Discussed with the resident and agree with the residents finding and plan as documented in the resident's note. Changes highlighted in blue font. Prognosis guarded, severely ill Objective - Vital Signs Vital signs: Vital Signs Temp 98.0 F 12/23/24 05:05 Pulse 96 12/23/24 05:05 Resp 25 H 12/23/24 05:05 BP 105/89 12/23/24 05:05 Pulse Ox 96 12/23/24 05:05 FiO2 Intake & Output 12/22/24 12/23/24 12/23/24 18:59 06:59 18:59 Output Total 275 Balance -275 Weight 72.575 kg Output: Urine 275 Other: Voiding Method External Catheter - Labs CBC & Chem 7: 12/23/24 09:19 12/23/24 09:19 Labs: Abnormal Lab Results - Last 24 Hours (Table) 12/22/24 12/22/24 12/22/24 Range/Units 11:58 11:58 11:58 WBC 26.25 H (4.50-10.00) 10*3/uL RBC 6.62 H (4.10-5.20) 10*6/uL Hgb 20.8 H* (12.0-15.0) g/dL Hct 64.0 H* (37.2-46.3) % MCV (80.0-97.0) fL Plt Count 80 L (140-440) 10*3/uL MPV 13.3 H (9.5-12.2) fL Immature Gran # 0.27 H (0.00-0.04) 10*3/uL Neutrophils # 23.25 H (1.80-7.70) 10*3/uL Neutrophils # (Manual) (1.3-7.7) k/uL Lymphocytes # 0.71 L (0.90-5.00) 10*3/uL Lymphocytes # (Manual) (1.0-4.8) k/uL Monocytes # 1.95 H (0.20-1.00) 10*3/uL Eosinophils # 0.00 L (0.04-0.35) 10*3/uL PT 28.3 H (10.0-12.5) sec INR 2.8 H (<1.2) Fibrinogen (200-500) mg/dL Sodium (137-145) mmol/L Potassium (3.5-5.1) mmol/L Chloride (98-107) mmol/L Carbon Dioxide (22-30) mmol/L BUN (7-17) mg/dL Creatinine (0.52-1.04) mg/dL Glucose (74-99) mg/dL Plasma Lactic Acid Jules (0.7-2.0) mmol/L Calcium (8.4-10.2) mg/dL Total Bilirubin (0.2-1.3) mg/dL AST (14-36) U/L ALT (4-34) U/L Troponin I (0.000-0.034) ng/mL Albumin (3.5-5.0) g/dL Urine Appearance Cloudy H (Clear) Urine Protein Trace H (Negative) Urine Ketones Trace H (Negative) Urine Blood Large H (Negative) Ur Leukocyte Esterase Moderate H (Negative) Urine RBC 53 H (0-5) /hpf Urine WBC 30 H (0-5) /hpf Ur Squamous Epith Cells 5 H (0-4) /hpf Urine Bacteria Many H (None) /hpf Hyaline Casts 91 H (0-2) /lpf Urine Mucus Many H (None) /hpf 12/22/24 12/22/24 12/22/24 Range/Units 11:58 11:58 12:07 WBC (4.50-10.00) 10*3/uL RBC (4.10-5.20) 10*6/uL Hgb (12.0-15.0) g/dL Hct (37.2-46.3) % MCV (80.0-97.0) fL Plt Count (140-440) 10*3/uL MPV (9.5-12.2) fL Immature Gran # (0.00-0.04) 10*3/uL Neutrophils # (1.80-7.70) 10*3/uL Neutrophils # (Manual) (1.3-7.7) k/uL Lymphocytes # (0.90-5.00) 10*3/uL Lymphocytes # (Manual) (1.0-4.8) k/uL Monocytes # (0.20-1.00) 10*3/uL Eosinophils # (0.04-0.35) 10*3/uL PT (10.0-12.5) sec INR (<1.2) Fibrinogen (200-500) mg/dL Sodium 161 H* (137-145) mmol/L Potassium 5.3 H (3.5-5.1) mmol/L Chloride 123 H (98-107) mmol/L Carbon Dioxide 14 L (22-30) mmol/L BUN 110 H* (7-17) mg/dL Creatinine 3.31 H (0.52-1.04) mg/dL Glucose 168 H (74-99) mg/dL Plasma Lactic Acid Jules 6.1 H* (0.7-2.0) mmol/L Calcium 10.7 H (8.4-10.2) mg/dL Total Bilirubin 2.5 H (0.2-1.3) mg/dL AST 67 H (14-36) U/L ALT 40 H (4-34) U/L Troponin I 0.308 H* (0.000-0.034) ng/mL Albumin (3.5-5.0) g/dL Urine Appearance (Clear) Urine Protein (Negative) Urine Ketones (Negative) Urine Blood (Negative) Ur Leukocyte Esterase (Negative) Urine RBC (0-5) /hpf Urine WBC (0-5) /hpf Ur Squamous Epith Cells (0-4) /hpf Urine Bacteria (None) /hpf Hyaline Casts (0-2) /lpf Urine Mucus (None) /hpf 12/22/24 12/22/2425 Range/Units 15:22 16:18 16:18 WBC 28.47 H (4.50-10.00) 10*3/uL RBC 5.53 H (4.10-5.20) 10*6/uL Hgb 17.5 H D (12.0-15.0) g/dL Hct 53.8 H (37.2-46.3) % MCV 97.3 H (80.0-97.0) fL Plt Count 40 L* (140-440) 10*3/uL MPV 13.5 H (9.5-12.2) fL Immature Gran # 0.36 H (0.00-0.04) 10*3/uL Neutrophils # (1.80-7.70) 10*3/uL Neutrophils # (Manual) 27.05 H (1.3-7.7) k/uL Lymphocytes # (0.90-5.00) 10*3/uL Lymphocytes # (Manual) 0.57 L (1.0-4.8) k/uL Monocytes # (0.20-1.00) 10*3/uL Eosinophils # (0.04-0.35) 10*3/uL PT (10.0-12.5) sec INR (<1.2) Fibrinogen (200-500) mg/dL Sodium 153 H (137-145) mmol/L Potassium (3.5-5.1) mmol/L Chloride 121 H (98-107) mmol/L Carbon Dioxide 18 L (22-30) mmol/L BUN 102 H* (7-17) mg/dL Creatinine 2.54 H (0.52-1.04) mg/dL Glucose 162 H (74-99) mg/dL Plasma Lactic Acid Jules 4.6 H* (0.7-2.0) mmol/L Calcium (8.4-10.2) mg/dL Total Bilirubin 2.2 H (0.2-1.3) mg/dL AST 70 H (14-36) U/L ALT (4-34) U/L Troponin I (0.000-0.034) ng/mL Albumin 3.0 L (3.5-5.0) g/dL Urine Appearance (Clear) Urine Protein (Negative) Urine Ketones (Negative) Urine Blood (Negative) Ur Leukocyte Esterase (Negative) Urine RBC (0-5) /hpf Urine WBC (0-5) /hpf Ur Squamous Epith Cells (0-4) /hpf Urine Bacteria (None) /hpf Hyaline Casts (0-2) /lpf Urine Mucus (None) /hpf 12/22/24 12/22/24 12/22/24 Range/Units 16:18 18:44 18:44 WBC (4.50-10.00) 10*3/uL RBC (4.10-5.20) 10*6/uL Hgb (12.0-15.0) g/dL Hct (37.2-46.3) % MCV (80.0-97.0) fL Plt Count (140-440) 10*3/uL MPV (9.5-12.2) fL Immature Gran # (0.00-0.04) 10*3/uL Neutrophils # (1.80-7.70) 10*3/uL Neutrophils # (Manual) (1.3-7.7) k/uL Lymphocytes # (0.90-5.00) 10*3/uL Lymphocytes # (Manual) (1.0-4.8) k/uL Monocytes # (0.20-1.00) 10*3/uL Eosinophils # (0.04-0.35) 10*3/uL PT (10.0-12.5) sec INR (<1.2) Fibrinogen (200-500) mg/dL Sodium 153 H (137-145) mmol/L Potassium (3.5-5.1) mmol/L Chloride (98-107) mmol/L Carbon Dioxide (22-30) mmol/L BUN (7-17) mg/dL Creatinine (0.52-1.04) mg/dL Glucose (74-99) mg/dL Plasma Lactic Acid Jules (0.7-2.0) mmol/L Calcium (8.4-10.2) mg/dL Total Bilirubin (0.2-1.3) mg/dL AST (14-36) U/L ALT (4-34) U/L Troponin I 0.422 H* 0.384 H* (0.000-0.034) ng/mL Albumin (3.5-5.0) g/dL Urine Appearance (Clear) Urine Protein (Negative) Urine Ketones (Negative) Urine Blood (Negative) Ur Leukocyte Esterase (Negative) Urine RBC (0-5) /hpf Urine WBC (0-5) /hpf Ur Squamous Epith Cells (0-4) /hpf Urine Bacteria (None) /hpf Hyaline Casts (0-2) /lpf Urine Mucus (None) /hpf 12/22/24 12/22/24 Range/Units 20:26 20:26 WBC (4.50-10.00) 10*3/uL RBC (4.10-5.20) 10*6/uL Hgb (12.0-15.0) g/dL Hct (37.2-46.3) % MCV (80.0-97.0) fL Plt Count (140-440) 10*3/uL MPV (9.5-12.2) fL Immature Gran # (0.00-0.04) 10*3/uL Neutrophils # (1.80-7.70) 10*3/uL Neutrophils # (Manual) (1.3-7.7) k/uL Lymphocytes # (0.90-5.00) 10*3/uL Lymphocytes # (Manual) (1.0-4.8) k/uL Monocytes # (0.20-1.00) 10*3/uL Eosinophils # (0.04-0.35) 10*3/uL PT (10.0-12.5) sec INR (<1.2) Fibrinogen <70 L* (200-500) mg/dL Sodium 151 H (137-145) mmol/L Potassium (3.5-5.1) mmol/L Chloride (98-107) mmol/L Carbon Dioxide (22-30) mmol/L BUN (7-17) mg/dL Creatinine (0.52-1.04) mg/dL Glucose (74-99) mg/dL Plasma Lactic Acid Jules (0.7-2.0) mmol/L Calcium (8.4-10.2) mg/dL Total Bilirubin (0.2-1.3) mg/dL AST (14-36) U/L ALT (4-34) U/L Troponin I (0.000-0.034) ng/mL Albumin (3.5-5.0) g/dL Urine Appearance (Clear) Urine Protein (Negative) Urine Ketones (Negative) Urine Blood (Negative) Ur Leukocyte Esterase (Negative) Urine RBC (0-5) /hpf Urine WBC (0-5) /hpf Ur Squamous Epith Cells (0-4) /hpf Urine Bacteria (None) /hpf Hyaline Casts (0-2) /lpf Urine Mucus (None) /hpf
[2024-12-23 12:43] LABS: Band Neutrophils % 2 %; Lymphocytes # (M) 0.39 k/uL (1.0-4.8); Monocytes # (M) 1.56 k/uL (0-1.0); Neutrophils # (M) 37.32 k/uL (1.3-7.7); Neutrophils % (M) 94 %; Nucleated Red Blood Cells 0 /100 WBC (0-0); Total Cells Counted 200
[2024-12-23 12:47] LABS: Large Platelets Present
[2024-12-23] MEDS: SODIUM CHLORIDE 0.45% 1,000 ML IV SCH (13:24)
[2024-12-23] MEDS: PIPERACILLIN-TAZOBACTAM 3.375 GM in SODIUM CHLORIDE 0.9% 100 ML IVPB SCH (16:12)
--- NOTE | 2024-12-23 16:14 | P.PN ---
Subjective Progress Note Date: 12/23/24 Principal diagnosis: Reason for follow-up is sepsis/UTI/aspiration pneumonia Patient is a 78-year-old female with a past medical history significant for osteoarthritis/seizure disorder memory impairment dementia who is a resident of [facility] patient had been sent to the ER with mental status changes patient did have fever positive UA concerning for sepsis secondary to UTI patient also have a CT abdominal pelvis which shows right lower lobe groundglass appearance concerning for aspiration pneumonia no evidence of hydronephrosis. On today's evaluation that is 12/23/2024,the patient did have resolution of her fever and is afebrile this morning, the patient remains to be unresponsive and cannot provide any history she is on 2 L current oxygen no vomiting or diarrhea reported by the nursing staff Patient white count is up to 38.88 platelet count is low creatinine is 2.31 Pro- Alvaro 0.98 blood urine cultures currently pending Objective - Vital Signs Vital signs: Vital Signs Temp 98.1 F 12/23/24 11:19 Pulse 116 H 12/23/24 12:48 Resp 33 H 12/23/24 12:48 BP 110/82 12/23/24 11:19 Pulse Ox 96 12/23/24 11:19 FiO2 Intake & Output 12/22/24 12/23/24 12/23/24 18:59 06:59 18:59 Output Total 275 Balance -275 Weight 72.575 kg Output: Urine 275 Other: Voiding Method External Catheter External Catheter - Exam GENERAL DESCRIPTION: An elderly female lying in bed in no distress RESPIRATORY SYSTEM: Unlabored breathing , decreased intensity breath sounds HEART: S1 S2 regular rate and rhythm , ABDOMEN: Soft , no tenderness EXTREMITIES: Swelling to the leg but no redness - Labs CBC & Chem 7: 12/23/24 09:19 12/23/24 09:19 Labs: Abnormal Lab Results - Last 24 Hours (Table) 12/22/24 12/22/24 12/22/24 Range/Units 11:58 12:07 15:22 WBC 26.25 H (4.50-10.00) 10*3/uL RBC 6.62 H (4.10-5.20) 10*6/uL Hgb 20.8 H* (12.0-15.0) g/dL Hct 64.0 H* (37.2-46.3) % MCV (80.0-97.0) fL Plt Count 80 L (140-440) 10*3/uL MPV 13.3 H (9.5-12.2) fL Immature Gran # 0.27 H (0.00-0.04) 10*3/uL Neutrophils # 23.25 H (1.80-7.70) 10*3/uL Neutrophils # (Manual) (1.3-7.7) k/uL Lymphocytes # 0.71 L (0.90-5.00) 10*3/uL Lymphocytes # (Manual) (1.0-4.8) k/uL Monocytes # 1.95 H (0.20-1.00) 10*3/uL Monocytes # (Manual) (0-1.0) k/uL Eosinophils # 0.00 L (0.04-0.35) 10*3/uL Fibrinogen (200-500) mg/dL Sodium (137-145) mmol/L Chloride (98-107) mmol/L Carbon Dioxide (22-30) mmol/L BUN (7-17) mg/dL Creatinine (0.52-1.04) mg/dL Glucose (74-99) mg/dL Plasma Lactic Acid Jules 4.6 H* (0.7-2.0) mmol/L Magnesium (1.6-2.3) mg/dL Total Bilirubin (0.2-1.3) mg/dL AST (14-36) U/L Troponin I 0.308 H* (0.000-0.034) ng/mL Albumin (3.5-5.0) g/dL 12/22/24 12/22/24 12/22/24 Range/Units 16:18 16:18 16:18 WBC 28.47 H (4.50-10.00) 10*3/uL RBC 5.53 H (4.10-5.20) 10*6/uL Hgb 17.5 H D (12.0-15.0) g/dL Hct 53.8 H (37.2-46.3) % MCV 97.3 H (80.0-97.0) fL Plt Count 40 L* (140-440) 10*3/uL MPV 13.5 H (9.5-12.2) fL Immature Gran # 0.36 H (0.00-0.04) 10*3/uL Neutrophils # (1.80-7.70) 10*3/uL Neutrophils # (Manual) 27.05 H (1.3-7.7) k/uL Lymphocytes # (0.90-5.00) 10*3/uL Lymphocytes # (Manual) 0.57 L (1.0-4.8) k/uL Monocytes # (0.20-1.00) 10*3/uL Monocytes # (Manual) (0-1.0) k/uL Eosinophils # (0.04-0.35) 10*3/uL Fibrinogen (200-500) mg/dL Sodium 153 H (137-145) mmol/L Chloride 121 H (98-107) mmol/L Carbon Dioxide 18 L (22-30) mmol/L BUN 102 H* (7-17) mg/dL Creatinine 2.54 H (0.52-1.04) mg/dL Glucose 162 H (74-99) mg/dL Plasma Lactic Acid Jules (0.7-2.0) mmol/L Magnesium (1.6-2.3) mg/dL Total Bilirubin 2.2 H (0.2-1.3) mg/dL AST 70 H (14-36) U/L Troponin I 0.422 H* (0.000-0.034) ng/mL Albumin 3.0 L (3.5-5.0) g/dL 12/22/24 12/22/24 12/22/24 Range/Units 18:44 18:44 20:26 WBC (4.50-10.00) 10*3/uL RBC (4.10-5.20) 10*6/uL Hgb (12.0-15.0) g/dL Hct (37.2-46.3) % MCV (80.0-97.0) fL Plt Count (140-440) 10*3/uL MPV (9.5-12.2) fL Immature Gran # (0.00-0.04) 10*3/uL Neutrophils # (1.80-7.70) 10*3/uL Neutrophils # (Manual) (1.3-7.7) k/uL Lymphocytes # (0.90-5.00) 10*3/uL Lymphocytes # (Manual) (1.0-4.8) k/uL Monocytes # (0.20-1.00) 10*3/uL Monocytes # (Manual) (0-1.0) k/uL Eosinophils # (0.04-0.35) 10*3/uL Fibrinogen (200-500) mg/dL Sodium 153 H 151 H (137-145) mmol/L Chloride (98-107) mmol/L Carbon Dioxide (22-30) mmol/L BUN (7-17) mg/dL Creatinine (0.52-1.04) mg/dL Glucose (74-99) mg/dL Plasma Lactic Acid Jules (0.7-2.0) mmol/L Magnesium (1.6-2.3) mg/dL Total Bilirubin (0.2-1.3) mg/dL AST (14-36) U/L Troponin I 0.384 H* (0.000-0.034) ng/mL Albumin (3.5-5.0) g/dL 12/22/24 12/23/24 12/23/24 Range/Units 20:26 09:19 09:19 WBC 38.88 H (4.50-10.00) 10*3/uL RBC 5.73 H (4.10-5.20) 10*6/uL Hgb 17.9 H (12.0-15.0) g/dL Hct 55.5 H (37.2-46.3) % MCV (80.0-97.0) fL Plt Count 35 L* (140-440) 10*3/uL MPV (9.5-12.2) fL Immature Gran # 0.48 H (0.00-0.04) 10*3/uL Neutrophils # (1.80-7.70) 10*3/uL Neutrophils # (Manual) 37.32 H (1.3-7.7) k/uL Lymphocytes # (0.90-5.00) 10*3/uL Lymphocytes # (Manual) 0.39 L (1.0-4.8) k/uL Monocytes # (0.20-1.00) 10*3/uL Monocytes # (Manual) 1.56 H (0-1.0) k/uL Eosinophils # (0.04-0.35) 10*3/uL Fibrinogen <70 L* (200-500) mg/dL Sodium 155 H (137-145) mmol/L Chloride 123 H (98-107) mmol/L Carbon Dioxide (22-30) mmol/L BUN 109 H* (7-17) mg/dL Creatinine 2.31 H (0.52-1.04) mg/dL Glucose 138 H (74-99) mg/dL Plasma Lactic Acid Jules (0.7-2.0) mmol/L Magnesium 2.5 H (1.6-2.3) mg/dL Total Bilirubin 2.2 H (0.2-1.3) mg/dL AST 39 H (14-36) U/L Troponin I (0.000-0.034) ng/mL Albumin 3.0 L (3.5-5.0) g/dL Assessment and Plan (1) Leukocytosis Current Visit: Yes Status: Acute Code(s): D72.829 - ELEVATED WHITE BLOOD CE LL COUNT, UNSPECIFIED SNOMED Code(s): 270522318 (2) Elevated serum creatinine Current Visit: Yes Status: Acute Code(s): R79.89 - OTHER SPECIFIED ABNORMAL FINDINGS OF BLOOD CHEMISTRY SNOMED Code(s): 900238419 (3) Severe sepsis Current Visit: Yes Status: Acute Code(s): A41.9 - SEPSIS, UNSPECIFIED ORGANISM; R65.20 - SEVERE SEPSIS WITHOUT SEPTIC SHOCK SNOMED Code(s): 03406689 (4) UTI (urinary tract infection) Current Visit: Yes Status: Acute Code(s): N39.0 - URINARY TRACT INFECTION, SITE NOT SPECIFIED SNOMED Code(s): 84536260 (5) Aspiration pneumonia Current Visit: Yes Status: Acute Code(s): J69.0 - PNEUMONITIS DUE TO INHALATION OF FOOD AND VOMIT SNOMED Code(s): 558047272 Plan: 1patient presented to hospital with unresponsiveness in this patient who did have a fever tachycardia elevated white count elevated lactic acid meeting criteria for SIRS/sepsis source is UTI likely from enteric gram-negative pathogen as currently no other obvious focus of infection on clinical lamination as well as initial investigation 2patient did have CT of abdominal pelvis concerning for possible aspiration pneumonia did not mention any hydronephrosis 3patient did have worsening of her white count antibiotic will be sent to [facility] to cover for possible aspiration pneumonia while waiting for the culture to finalize Dictation was produced using [employer] dictation software. please excuse any grammatical, word or spelling errors. Time with Patient: Less than 30
[2024-12-23 18:56] LABS: HGB 20.8 g/dL (12.0-15.0)
[2024-12-23] MEDS: BUDESONIDE 0.5 MG/2 ML NEBU INHALATION SCH (19:52)
[2024-12-23 20:43] LABS: EBV-EA (IgG) <0.2 AI; EBV-EBNA(IgG) >8.0; EBV-VCA (IgG) >8.0 AI; EBV-VCA (IgM) <0.2 AI; HIV 2 AB Non-Reactive (Non-Reactive); HIV AB P24 Non-Reactive (Non-Reactive); HIV P24 AG Non-Reactive (Non-Reactive)
[2024-12-23 21:12] LABS: Glucose,Whole Blood 131 mg/dL (70-110)
[2024-12-23 21:25] LABS: Glucose,Whole Blood 130 mg/dL (70-110)
[2024-12-23 21:47] VITALS: TEMP 97.6
[2024-12-23] MEDS: DEXTROSE 5% IN WATER 1,000 ML IV SCH (22:06)
[2024-12-23] MEDS: NOREPINEPHRINE 4 MG in SODIUM CHLORIDE 0.9% 250 ML IV SCH (22:06)
[2024-12-23 22:10] VITALS: BP 102/68; PULSE 122; RESP 15
--- NOTE | 2024-12-23 22:10 | P.EN ---
Advance care planning We were notified the patient's been transfered to ICU. ICU nurse reached out to us as the patient had left limb mottling. ICU nurse asked us to see the patient. Upon evaluation the patient's left limb was cold and mottled. No palpable popliteal and dorsalis pedis pulses. ICU nurse reported very faint Doppler femoral pulse. There was high concern for acute limb ischemia. Given the patient's underlying dementia, goals of care discussion was had with with 2 sons who are in the room and 1 son was on the phone call on speaker. We discussed that this was a surgical emergency. The next step would be imaging as well as anticoagulation and discussion with surgery. We discussed with the family if this would be in alignment with Snidhu's plan of care. Family members reported they were not interested in surgery at this time. Given the patient's family declined the surgery the neck step would be to proceed with comfort care. Patient lacks capacity for medical decisions at this time And is currently A&O x 0. Plan to transfer to [facility], initiate comfort care orders. Hospice consulted.
[2024-12-23] MEDS ORDERED: LORazepam 1 MG/0.5 ML VIAL IV PRN (22:30)
[2024-12-23] MEDS ORDERED: ATROPINE OPHTH SOLN 1% 5ML BTL SUBLINGUAL PRN (22:30)
[2024-12-23] MEDS ORDERED: GLYCOPYRROLATE 0.2 MG/ML 2 ML VIAL IVP PRN (22:30)
[2024-12-23] MEDS: MORPHINE SULFATE 100 MG in SODIUM CHLORIDE 0.9% 90 ML IV SCH (22:36)
[2024-12-23] MEDS: SCOPOLAMINE 1 MG/72 HR PATCH TRANSDERM SCH (22:36)
[2024-12-23] MEDS: DRY MOUTH SPRAY 59 SPRAY/59 ML SPRAY MUCOUS MEM PRN (22:36)
--- NOTE | 2024-12-24 02:50 | P.DS ---
Providers Date of admission: 12/22/24 16:38 Expected date of discharge: 12/24/24 Attending physician: Thomas Hinds Consults: 12/22/24 15:50 Consult Physician Urgent Consulting Provider: Braydon Mcneil Consult Reason/Comments: YAHIR Do you want consulting provider notified?: Yes Consult Physician Urgent Consulting Provider: Flakito Steve Consult Reason/Comments: UTI, severe sepsis Do you want consulting provider notified?: Yes 12/22/24 17:20 Consult Physician Routine Consulting Provider: Mateo Aggarwal Consult Reason/Comments: elevated trop Do you want consulting provider notified?: Yes 12/23/24 14:57 Consult Physician Routine Consulting Provider: Alejandro Powell Consult Reason/Comments: isolated thrombocytopenia, ITP? Do you want consulting provider notified?: Yes 12/23/24 21:46 Consult Physician Routine Consulting Provider: Minesh Enrique Consult Reason/Comments: ICU management Do you want consulting provider notified?: Already Contacted Primary care physician: Saad Landa MD Hospital Course: Note Diagnosis: Hypernatremia, likely secondary to poor oral intake Severe sepsis, with unknown source of infection possibly aspiration pneumonia Acute septic/metabolic encephalopathy Dementia YAHIR secondary to ATN, likely secondary to hypotension/sepsis Hyperkalemia, likely secondary to above, resolved High anion gap metabolic acidosis, likely secondary to above, resolved Lactic acidosis, Resolved Transaminitis, likely secondary to above, improving Thrombocytopenia, 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 She lives in an [facility] home and at baseline is A&O x 1. She was reportedly found to be increasingly altered and essentially only responds to painful stimuli. She was found to be hypotensive with a BP of 70/50, and received 500 cc bolus of normal saline by EMS, who recommends improvement in her blood pressure at the time. Unsure when her last known well was. Family acknowledged that she is generally limited in her ability to communicate however usually more responsive. On arrival temperature 103.1 F rectally, blood pressure 99/74, heart rate 113, respiratory rate 20, WBCs 26.25,, hemoglobin 20.8, platelet count 80, INR 2.8, sodium 161, potassium 5.3, chloride 123, BUN 110, creatinine 3.31, lactic acid 6.1, calcium 10.7, total bilirubin 2.5, large blood and moderate leukocyte esterase with many bacteria in the urine. Troponin elevated at 0.308. Chest x- ray and CT brain negative for acute process. Patient treated with vancomycin, Rocephin, D5 half-normal saline. Arias catheter was placed. Nurse overnight did note that she felt as though she was not producing a ton of urine overnight and noticed an increased respiratory rate with some noted increase in work of breathing while her O2 saturation has remained in the mid 90%'s. Chest Xray done that showed Mild increased lung misti ings. On 12/23/2024 at 2104 and A-team was called for hypotension. Patient transferred to the ICU for pressor support per the yoker. Patient was also found to have cold and mottled left limb with no palpable popliteal and dorsalis pedis pulses. ICU nurse reported very faint Doppler femoral pulse. There was a high concern for acute left lower limb ischemia. The patient appeared to be a poor surgical candidate given her dementia. Patient lacked capacity for medical decisions. Goals of care discussion with the family. Family declined further workup. Patient was made comfort care. Patient on 12/24/2024 at 0212. Plan - Discharge Summary Discharge Rx Participant: Yes New Discharge Prescriptions: No Action Cholecalciferol [Vitamin D3 (25 Mcg = 1000 Iu)] 50 mcg PO DAILY Donepezil HCl [Aricept] 10 mg PO DAILY Budesonide 0.5 mg INHALATION RT-BID Pimecrolimus 1 applic TOPICAL DAILY Magnesium Hydroxide [Milk of Magnesia] 2,400 mg PO Q2D PRN PRN Reason: Constipation haloperidoL [Haldol] 1 mg PO DAILY Cholestyramine (with Sugar) [Cholestyramine Packet] 4 gm PO DAILY Lactobacillus Acidophilus [Acidophilus] 1 cap PO DAILY FLUoxetine HCL [PROzac] 20 mg PO DAILY levETIRAcetam [Keppra] 500 mg PO BID Metoprolol Tartrate [Lopressor] 12.5 mg PO DAILY Discharge Medication List Cholecalciferol [Vitamin D3 (25 Mcg = 1000 Iu)] 50 mcg PO DAILY 04/29/22 [History] Donepezil HCl [Aricept] 10 mg PO DAILY 04/29/22 [History] Budesonide 0.5 mg INHALATION RT-BID 12/22/24 [History] Cholestyramine (with Sugar) [Cholestyramine Packet] 4 gm PO DAILY 12/22/24 [History] FLUoxetine HCL [PROzac] 20 mg PO DAILY 12/22/24 [History] Lactobacillus Acidophilus [Acidophilus] 1 cap PO DAILY 12/22/24 [History] Magnesium Hydroxide [Milk of Magnesia] 2,400 mg PO Q2D PRN 12/22/24 [History] Metoprolol Tartrate [Lopressor] 12.5 mg PO DAILY 12/22/24 [History] Pimecrolimus 1 applic TOPICAL DAILY 12/22/24 [History] haloperidoL [Haldol] 1 mg PO DAILY 12/22/24 [History] levETIRAcetam [Keppra] 500 mg PO BID 12/22/24 [History] Follow up Appointment(s)/Referral(s): Mery Schmid DO [Doctor of Osteopathic Medicine] - 1-2 days Discharge Disposition: - Preliminary Cause of Preliminary Cause of : Septic shock
[2024-12-27 21:16] LABS: Hepatitis A Antibody IgM Nonreactive (Nonreactive); Hepatitis B Core IgM Nonreactive (Nonreactive); Hepatitis B Surface Antigen Nonreactive (Nonreactive); Hepatitis C IgG Antibody Nonreactive (Nonreactive)
== END 2024-12-24 04:55 | disposition expired | DRG 871 ==
LOC: EC 11:38 → 3SCARD 16:38 → 2SICU 12-23 21:21
PROVIDERS: ADMIT Student in an Organized Health Care Education/Training Program; ATTEND Student in an Organized Health Care Education/Training Program
DX: A41.9 Sepsis, unspecified organism (principal); G93.41 Metabolic encephalopathy; I21.A1 Myocardial infarction type 2; N17.0 Acute kidney failure with tubular necrosis; J69.0 Pneumonitis due to inhalation of food and vomit; R65.21 Severe sepsis with septic shock; E87.20 Acidosis, unspecified; E87.0 Hyperosmolality and hypernatremia; D69.3 Immune thrombocytopenic purpura; F03.90 Unspecified dementia, unspecified severity, without behavioral disturbance, psychotic disturbance, mood disturbance, and anxiety; G40.909 Epilepsy, unspecified, not intractable, without status epilepticus; G91.9 Hydrocephalus, unspecified; N39.0 Urinary tract infection, site not specified; E87.1 Hypo-osmolality and hyponatremia; I99.8 Other disorder of circulatory system; Z11.52 Encounter for screening for COVID-19; Z51.5 Encounter for palliative care; Z66 Do not resuscitate; D69.6 Thrombocytopenia, unspecified; E87.5 Hyperkalemia; D75.1 Secondary polycythemia; E83.52 Hypercalcemia; I45.10 Unspecified right bundle-branch block; M19.90 Unspecified osteoarthritis, unspecified site; K57.30 Diverticulosis of large intestine without perforation or abscess without bleeding; M48.061 Spinal stenosis, lumbar region without neurogenic claudication; M47.896 Other spondylosis, lumbar region; E27.8 Other specified disorders of adrenal gland; Z79.899 Other long term (current) drug therapy; Z88.6 Allergy status to analgesic agent
CPT/HCPCS: 36415; 51702; 70450; 71045; 71046; 74176; 80053; 80074; 81001; 82550; 82607; 82746; 83605; 83735; 84100; 84145; 84295; 84484; 85025; 85384; 85610; 85730; 86663; 86664; 86665; 87040; 87077; 87086; 87186; 87390; 87636; 93005; 94640; 96361; 96365; 96366; 96367; 96375; 96376; 99291